=== PATIENT | female | born 1945 | race Caucasian/White ===

== ENCOUNTER 2017-10-08 18:40 | Inpatient (IN) ==
--- OUTSIDE RECORDS SUMMARY | 2017-10-08 19:03 | External Medical Summary | Continuity of Care Document ---
:1945 Author Organization [facility] Care Team Providers Name Role Phone YADIRA MORA A Admitting Physician YADIRA MORA Attending Physician Hospital Admission Diagnosis No data in the System Social History Element Code Description Smoking Start Date End Date Description Status Code System Smoking Status [id number] Never smoker SNOMED-CT Problems No data in the system Medications SNOMED CT Description 475734499 Drug Treatment Unknown Allergies No Allergy Data in the System Results Laboratory Results Order: CreatinineLegend: D=Delta, H=High, L =Low, HH=Critical High, LL=Critical Low, AA=Critical Alpha-Numeric, C=Corrected , A=Abnormal LOINC Test Result Flag Range Units Date 2160-0 1.1 0.6-1.3 mg/dl 01/11/2016 1Creat 08:20 SerPl-mCnc 50 L 60-116 GFRunits 01/11/2016 1GFR 08:20 [facility]forming [facility]notes:[id number] [address] [place] [address] - D[facility] M [facility] Radiology Results Order: CTABDWW CT Abdomen WWO/ContrastExam Completion Date:01/11/2016 09:00INDICATION: R10.11-RUQ pain; Abnormal US done CT Abdomen WWO/Contrast: Axial CT images of the abdomen were obtained before,during, and after the bolus injection of IV contrast. Contrast:95 cc Optiray 320Comparison: Gallbladder ultrasound 01/04/2016.Findings: The pelvis is incompletely included on the exam. There is however abulky soft tissue mass involving the distal sigmoid colon. This is veryworrisome for a primary carcinoma of the colon. There are multiplelow-attenuation solid liver masses. These include a 6.2 x 5.4 cm mass in theright lobe of the liver posteriorly. These are very worrisome for metastases.There is an indeterminate hypodensity in the upper pole of the spleen. Thisagain may also be due to a metastasis. There are also multiple subtle areas ofdecreased attenuation within the right renal parenchyma. These areradiographically indeterminate and could be due either to metastatic diseaseor to an inflammatory process. Please correlate clinically.Cholelithiasis. The gallbladder is otherwise negative. The pancreas and leftkidney are unremarkable. No bowel dilatation is seen. There is no ascites.Incidentally noted is a tiny calcified nodule in the right lung base. Thisagain is worrisome for a metastasis.Released By DELVIN DEL RIO, MDDate: 2015 12:26 Vital Signs No data in the system Plan of Care No data in the system Procedures No data in the system Encounters No data in the system Immunizations No data in the system Functional Status No data in the system Hospital Discharge Instructions No data in the system
--- OUTSIDE RECORDS SUMMARY | 2017-10-08 19:03 | External Medical Summary | Continuity of Care Document ---
:1945 Author Organization [facility] Care Team Providers Name Role Phone HOUSTON LEVIN II Admitting Physician HOUSTON LEVIN II Attending Physician ALEXANDER MORA Primary Care Physician Hospital Admission Diagnosis No data in the System Social History Element Code Description Smoking Start Date End Date Description Status Code System Smoking Status [id number] Never smoker SNOMED-CT Problems Code Code System Problem Name Start Date End Date Status 138866717 SNOMED-CT Gallstone Unknown Active 17471060 SNOMED-CT Diabetes Unknown Active mellitus Medications RxNorm Medication Dose Route Instructions Indications Start End Status Date Date Ascorbate 500 Oral orally 2 Active Calcium milligram times per day 308740 Ascorbic Acid 500 Oral orally 2 Active 500 MG Oral milligram times per day Tablet 19740512 Ciprofloxacin 500 MG ORAL ORAL TWO 01/14/ Active 250 MG Oral TIMES DAILY 2016 Tablet 6404 Linseed Oil 1000 Oral orally 2 Active milligram times per day 785410 Lisinopril 5 MG 5 milligram Oral orally every HTN Active Oral Tablet day 72979 Lutein 20 Oral orally once Eyes Active milligram (administer with a meal or snack) 109197 Metformin 500 Oral orally 2 Diabetes Active hydrochloride milligram times per day 500 MG Oral Tablet 044262 Metoclopramide 10 MG ORAL ORAL EVERY 6 01/14/ Active 10 MG Oral HRS NEEDED 2016 Tablet as needed. 171171 Ondansetron 4 MG 4 MG ORAL ORAL EVERY 01/14/ Active Disintegrating FOUR HOURS 2016 Oral Tablet NEEDED as needed. Allergies Code Code Allergy Type Reaction Severity Start End Status System Substance Date Date 7051 RXNorm Morphine Drug Needs oxygen Unknown 01/12/20 Active allergy 16 814274 RXNorm Percocet Drug N/V and Unknown 01/12/20 Active allergy dizziness 16 36529 RXNorm Percocet Drug N/V and Unknown 01/12/20 Active allergy dizziness 16 Results Laboratory Results Order: CBC With Automated DifferentialLegend: D=Delta, H=High, L=Low, HH=Critical High, LL=Critical Low, AA=Critical Alpha-Numeric, C=Corrected, A=Abnormal LOINC Test Result Flag Range Units Date 6690-2 10.2 4.5-11.0 10^3/mm3 01/16/2016 1WBC # Bld 04:50 Auto 76814-4 3.75 L 4.00-5.20 10^6/mm3 01/16/2016 1Retics # 04:50 Auto 50809-2 9.8 L 12.0-16.0 g/dl 01/16/2016 1Hgb 04:50 BldV-mCnc 4544-3 30.5 L 36.0-46.0 % 01/16/2016 1Hct VFr Bld 04:50 Auto 787-2 81.3 L 82.0-100.0 10^6/mm3 01/16/2016 1MCV RBC Auto 04:50 785-6 26.1 L 27.0-34.0 pg 01/16/2016 1MCH RBC Qn 04:50 Auto 786-4 32.1 32.0-36.0 g/dl 01/16/2016 1MCHC RBC 04:50 Auto-mCnc 788-0 15.4 H 11.7-15.0 % 01/16/2016 1RDW RBC 04:50 Auto-Rto 777-3 240 150-450 10^3/mm3 01/16/2016 1Platelet # 04:50 Bld Auto 09919-5 9.6 7.4-10.4 01/16/2016 1PMV Bld 04:50 35845-9 72.9 40.0-74.0 % 01/16/2016 1Neutrophils 04:50 # CSF 14.8 14.0-46.0 % 01/16/2016 1LYMPH% 04:50 43591-2 10.6 4.0-13.0 % 01/16/2016 1CD43 Ag Tiss 04:50 Ql ImStn 711-2 1.5 0.0-4.0 % 01/16/2016 1Eosinophil # 04:50 Bld Auto 704-7 0.2 <=3.0 % 01/16/2016 1Basophils # 04:50 Bld Auto 751-8 7.4 1.8-7.8 01/16/2016 1Neutrophils 04:50 # Bld Auto 90406-1 1.5 0.7-4.5 01/16/2016 1Lymphocytes 04:50 # Bld 08499-6 1.1 H 0.1-1.0 01/16/2016 1CD43 Ag Tiss 04:50 Ql ImStn 711-2 0.15 <=4.00 01/16/2016 1Eosinophil # 04:50 Bld Auto 704-7 0.02 <=0.20 01/16/2016 1Basophils # 04:50 Bld Auto N 01/16/2016 1MANDIFF 04:50 83960-5 N 01/16/2016 1RBC Bld Auto 04:50 Performing Lab Footnotes:[address] [place] [address] - [id number] - [address] [place] [address] Order: Comprehensive Metabolic PanelLegend: D=Delta, H=High, L=Low, HH= Critical High, LL=Critical Low, AA=Critical Alpha-Numeric, C=Corrected, A= Abnormal LOINC Test Result Flag Range Units Date 2345-7 132 H 70-105 mg/dl 01/16/2016 1Glucose 04:50 SerPl-mCnc 3094-0 8 7-25 mg/dl 01/16/2016 1BUN 04:50 SerPl-mCnc 2160-0 0.6 0.6-1.3 mg/dl 01/16/2016 1Creat 04:50 SerPl-mCnc 65122-2 13 13-39 01/16/2016 1Creat/Urea 04:50 nit SerPl 2951-2 140 135-145 mmol/L 01/16/2016 1Sodium 04:50 SerPl-sCnc 86074-3 3.6 3.5-5.1 mmol/L 01/16/2016 1Potassium 04:50 SerPl-mCnc 2075-0 103 98-107 mmol/l 01/16/2016 1Chloride 04:50 SerPl-sCnc 2028-9 31 21-31 mmol/l 01/16/2016 1CO2 04:50 SerPl-sCnc 21343-6 10 9-16 mmol/L 01/16/2016 1Anion Gap 04:50 SerPl-sCnc 2692-2 290 277-298 mOsm/kg 01/16/2016 1Osmolality 04:50 SerPl 88701-2 8.4 8.2-10.0 mg/dl 01/16/2016 1Calcium 04:50 SerPl-mCnc 1742-6 23 7-52 IU/L 01/16/2016 1ALT 04:50 SerPl-cCnc 1920-8 47 H 13-39 IU/L 01/16/2016 1AST 04:50 SerPl-cCnc 1715-2 183 H 34-104 U/L 01/16/2016 1ACP 04:50 SerPl-cCnc 1975-2 0.4 0.3-1.0 mg/dl 01/16/2016 1Bilirub 04:50 SerPl-mCnc 2885-2 5.6 L 6.0-8.3 g/dL 01/16/2016 1Prot 04:50 SerPl-mCnc 1751-7 2.5 L 3.5-5.7 g/dl 01/16/2016 1Albumin 04:50 SerPl-mCnc 2336-6 3.1 2.3-3.2 g/dL 01/16/2016 1Globulin 04:50 Ser-mCnc 1759-0 0.8 L 1.2-2.0 01/16/2016 1Albumin/Melba 04:50 b SerPl 99 60-116 GFRunits 01/16/2016 1GFR 04:50 Performing Lab Footnotes:[facility] [id number] [facility] [address] [place] Order: PotassiumLegend: D=Delta, H=High, L=Low, HH=Critical High, LL=Critical Low, AA=Critical Alpha-Numeric, C=Corrected, A=Abnormal LOINC Test Result Flag Range Units Date 02829-3 3.1 L 3.5-5.1 mmol/L 01/13/2016 1Potassium 10:40 [facility] Performing Lab Footnotes:[address] [place] [address] - [id number] - [address] [place] [address], [place] [address] - [facility] Order: Urinalysis With Microscopic ExamLegend: D=Delta, H=High, L=Low, HH= Critical High, LL=Critical Low, AA=Critical Alpha-Numeric, C=Corrected, A= Abnormal LOINC Test Result Flag Range Units Date 5778-6 Color Ur Yellow 6 14:30 17930-2 Clarity Hazy Ur 6 14:30 2966-0 Sp Gr 1.020 1.005-1.030 24h Ur 6 14:30 2756-5 pH Ur 5.5 5.0-7.0 6 14:30 58885-7 Small * NEGATIVE Leukocyte esterase 6 14:30 Ur-aCnc 91647-7 Nitrite Positive * NEGATIVE Ur Ql Strip.auto 6 14:30 81905-2 Prot 30 mg/dL * NEGATIVE Tiss-mCnt 6 14:30 2349-9 Glucose Negative NEGATIVE Ur Ql 6 14:30 41469-3 MEK 5 mg/dL * NEGATIVE Ur-mCnc 6 14:30 1977-8 Bilirub Negative NEGATIVE Ur Ql 6 14:30 933-2 Bld Prod Trace-lysed * NEGATIVE Typ BPU 6 14:30 88964-0 2.0 H <=1.0 Urobilinogen Ur Ql 6 14:30 1WBC_UM 10-20 * 0-5 /HPF 6 14:30 5808-1 1RBC # 0-2 * 0-5 /HPF UrnS HPF 6 14:30 5787-7 1Epi 5-10 * 0-2 /HPF Cells #/area UrnS 6 14:30 HPF 96557-9 Many /HPF 1Bacteria UrnS Ql 6 14:30 Micro 04038-7 1Mucous Small Amount * NONE PRESENT /HPF Threads #/area 6 14:30 UrnS HPF 11710-7 1C trach Y UrnS Ql Cult 6 14:30 Performing Lab Footnotes:[facility] [id number] - [address] [place] [address] - [facility] Order: CEA Carcinoembryonic AntigenLegend: D=Delta, H=High, L=Low, HH=Critical High, LL=Critical Low, AA=Critical Alpha-Numeric, C=Corrected, A=Abnormal LOINC Test Result Flag Range Units Date 2038-10 45.29 H 0.00-3.00 ng/mL 01/12/2016 1CEA 13:20 SerPl-mCnc 1Reference Non-Smoker 0-3 ng/mlSmoker 0-5 ng/mlPast smoker 0-5.4 ng/mlAs of 11/27/2011 new methodology has been implemented, this methodology shows a -19.97% bais. Reference range cutoffs will remain the same. Performing Lab Footnotes:[address] [place] [address] [id number] [place] Order: LactateLegend: D=Delta, H=High, L=Low, HH=Critical High, LL=Critical Low , AA=Critical Alpha-Numeric, C=Corrected, A=Abnormal LOINC Test Result Flag Range Units Date 14668-0 1.9 0.5-2.2 mmol/L 01/12/2016 1Lactate 13:20 SerPl-[facility] Performing Lab Footnotes:[facility] [id number] [address] M [place] Order: LipaseLegend: D=Delta, H=High, L=Low, HH=Critical High, LL=Critical Low , AA=Critical Alpha-Numeric, C=Corrected, A=Abnormal LOINC Test Result Flag Range Units Date 3040-3 20 11-82 U/L 01/12/2016 1Lipase 13:20 SerPl-[facility] Performing Lab Footnotes:[address] [place] [address] [id number] M E[place]IS[place] Microbiology Results w SusceptibilitiesOrder: Culture UrineIsolate #1:1Escherichia coli (>100,000 cfu/ml)Susceptibility: LOINC Code Drug Interpretation Result Date 1Ampicillin Susceptible <=2 01/12/2016 14:30 32-3 1Ampicillin/Sul Susceptible <=2 01/12/2016 bactam 14:30 76-0 1Cefazolin Susceptible <=01/12/2016 14:30 26367-1 1Cefepime Susceptible <=01/12/2016 14:30 80100-2 1Ceftriaxone Susceptible <=01/12/2016 14:30 185-9 1Ciprofloxacin Susceptible <=0.25 01/12/2016 14:30 267-5 1Gentamicin Susceptible <=1 01/12/2016 14:30 43244-0 1Levofloxacin Susceptible <=0.12 01/12/2016 14:30 1Nitrofurantoin Susceptible <=16 01/12/2016 (ftn) 14:30 412-7 1Piperacillin/t Susceptible <=01/12/2016 azobactam 14:30 508-2 1Tobramycin Susceptible <=01/12/2016 14:30 516-5 1Trimethoprim/S Susceptible <=20 01/12/2016 ulfamethoxazole 14:30 Performing Lab Footnotes:[facility] [id number] - [address] [place] [address] - [place] Keri LANDIS Vital Signs Vitals Value Date Body Temperature 98.2 F 01/16/2016 Respiratory Rate 21 01/16/2016 O2% BldC Oximetry 97 01/16/2016 BP Systolic 128 mmHg 01/16/2016 BP Diastolic 65 mmHg 01/16/2016 Height 66 in 01/12/2016 Weight Measured 179.89 lbs 01/12/2016 BSA (Body Surface Area) 1.12354 01/12/2016 BMI (Body Mass Index) 29.2 01/12/2016 Plan of Care No data in the system Procedures Code Code System Procedure Name Target Site Date of Procedure 57343978 SNOMED Appendectomy 01/11/2014 857993528 SNOMED Total knee 10/15/2006 replacement 242015436 SNOMED Total knee 08/11/2006 replacement Encounters No data in the system Immunizations Vaccine Code Code System Vaccine Name Date Status 109 CVX 02/09/2015 Completed pneumococcal vaccine, NOS 88 CVX influenza Completed virus vaccine, NOS Functional Status No data in the system Hospital Discharge Instructions MedicalPrescriptions Called To:Take CIPRO 500MG 1 TAB BY MOUTH TWICE A DAY MORNING AND EVENING. TAKE ZOFRAN 4MG ODT 1 TABLET BY MOUTH EVERY 4 HOURS NEEDED.TAKE REGLAN 10MG 1 TABLET BY MOUTH EVERY 6 HOURS NEEDED.[facility] pharmacyNotify Your Physician with Any Questions or ProblemsCall your Physician or report to the Emergency Room if your condition(s) worsen after dischargeActivityResume usual activities unless otherwise indicatedFollow Up AppointmentDrMaritza Levin will schedule appointment with Dr. Guzman this week and will notify you.Additional Education Provided:MedicationsNotify Your Physician with Any Questions or ProblemsIf you have any further questions, contact your physician or clinicActivityAlternate activity periods with rest periods; breakup large activites into smaller tasksNotify Your Physician with Any Questions or ProblemsPlease bring a copy of this instruction sheet with you to your physician on your follow up visitHome Meds SentN/ADietDiabetic ADA reduced calorie
--- OUTSIDE RECORDS SUMMARY | 2017-10-08 19:03 | External Medical Summary | Continuity of Care Document ---
:1945 Author Organization [facility] Allergies Active Description Code Type Severity Reaction Onset Reported/ Identified Relationship Clinical to Patient Status Yes Morphine ##NOM Drug N/A N/A Sulfate EN##, AL1,c eStru ct,al lergy ,1237 ,8981 394 Yes percocet Drug N/A dizzy Yes Morphine 1545 Unknown N/A 01/12/2016 Yes Morphine 1545 Unknown Needs 01/12/2016 oxygen Yes No Known 75448 Unknown N/A 01/12/2016 Drug 0 Allergies Yes Percocet 6992 Unknown N/A 01/12/2016 Yes Percocet 6992 Unknown N/V and 01/12/2016 dizziness Yes morphine 326 Drug moderate O2 drops 05/22/2017 out Yes Percocet 6992 Drug moderate Nausea~Di 05/22/2017 zziness Medications Medication Packaging Start Date Stop Date Route Dosage Sig Soln 08/21/2016 08/21/2016 <RXR.1.2 10 sodium chloride >IV Once 0.9% Inj Ghada Flush</R 10 mL [CLAR] XR.1.2>& lt;RXR.1.2& gt;IV Flush</R XR.1.2> Soln 08/21/2016 08/21/2016 <RXR.1.2 500 heparin flush >IV Once 100 units/mL Ghada Flush</R 5mL XR.1.2>& syringe[CLAR] lt;RXR.1.2& gt;IV Flush</R XR.1.2> Soln 08/21/2016 08/21/2016 <RXR.1.2 10 sodium chloride >N/A< Once 0.9% Inj Ghada /RXR.1.2&gt 10 mL [CLAR] ;<RXR.1. 2>N/A&lt ;/RXR.1.2&g t; Soln 08/21/2016 08/21/2016 <RXR.1.2 500 heparin flush >N/A< Once 100 units/mL Ghada /RXR.1.2&gt 5mL ;<RXR.1. syringe[CLAR] 2>N/A&lt ;/RXR.1.2&g t; Problems Date Dx Attending Type Code Diagnosis Diagnosed By Coded 01/16/2016 YADIRA MORA I10 ESSENTIAL (PRIMARY) HYPERTENSION 01/16/2016 YADIRA MORA R10.11 RIGHT UPPER QUADRANT PAIN 01/16/2016 YADIRA MORA R10.13 EPIGASTRIC PAIN 01/16/2016 YADIRA MORA R16.0 HEPATOMEGALY, NOT ELSEWHERE CLASSIFIED 01/16/2016 YADIRA MORA Z01.810 ENCOUNTER FOR PREPROCEDURAL CARDIOVASCULAR EXAMINATION 02/23/2016 HOUSTON LEVIN B96.20 UNSPECIFIED ESCHERICHIA COLI [E. COLI] THE CAUSE OF DISEASES CLASSIFIED ELSEWHERE 02/23/2016 HOUSTON LEVIN E11.9 TYPE 2 DIABETES MELLITUS WITHOUT COMPLICATIONS 02/23/2016 HOUSTON LEVIN K44.9 DIAPHRAGMATIC HERNIA WITHOUT OBSTRUCTION OR GANGRENE 02/23/2016 HOUSTON LEVIN K62.89 OTHER SPECIFIED DISEASES OF ANUS AND RECTUM 02/23/2016 HOUSTON LEVIN R10.11 RIGHT UPPER QUADRANT PAIN 02/23/2016 HOUSTON LEVIN R10.84 GENERALIZED ABDOMINAL PAIN 02/23/2016 HOUSTON LEVIN R11.2 NAUSEA WITH VOMITING, UNSPECIFIED 02/23/2016 HOUSTON LEVIN R16.0 HEPATOMEGALY, NOT ELSEWHERE CLASSIFIED 02/23/2016 HOUSTON LEVIN R82.99 OTHER ABNORMAL FINDINGS IN URINE 12/31/2016 MOY YEE 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 UNSPECIFIED 12/31/2016 MOY YEE K80.20 CALCULUS OF D. GALLBLADDER WITHOUT CHOLECYSTITIS WITHOUT OBSTRUCTION 12/31/2016 MOY YEE R16.1 SPLENOMEGALY, NOT D. ELSEWHERE CLASSIFIED 12/31/2016 MOY YEE R19.09 OTHER D. INTRA-ABDOMINAL AND PELVIC SWELLING, MASS AND LUMP 12/31/2016 MOY YEE R91.1 SOLITARY PULMONARY D. NODULE 05/26/2017 Yamile Shane N13.8 Other Obstructive And Reflux Uropathy 08/19/2017 Yamile Shane N13.39 Other Hydronephrosis Procedures Code Description Performed By Performed On EXCISION OF STIJAIMIE, HOUSTON 01/13/2016 1ZWK1PV RECTUM, VIA NATURAL OR ARTIFICIAL OPENING ENDOSCOPIC, DIAGNOSTIC INSPECTION POONAM, HOUSTON 01/13/2016 2TH75SG OF UPPER INTESTINAL TRACT, VIA NATURAL OR ARTIFICIAL OPENING ENDOSCOPIC Results Test Result Range Vitamin D, 25-Hydroxy - 08/12/17 08:05 Vitamin D, 25-Hydroxy 34.0 ng/mL 30.0-100.0 PTH, Intact - 08/12/17 08:05 PTH, Intact 143 pg/mL 15-65 Procalcitonin - 01/08/17 13:00 Procalcitonin 0.24 ng/mL 0.00-0.08 UGT1A1 Irinotecan Toxicity - 01/15/17 14:25 Result: Comment Additional Information: Comment Director Review: Comment LINDA and PE, Serum - 03/24/17 14:06 Protein, Total, Serum 6.3 g/dL 6.0-8.5 Immunoglobulin G, Qn, Serum 957 mg/dL 700-1600 Immunoglobulin A, Qn, Serum 154 mg/dL 64-422 Immunoglobulin M, Qn, Serum 122 mg/dL 26-217 Albumin 3.4 g/dL 2.9-4.4 Rrkly-2-Nygtsbfm 0.3 g/dL 0.0-0.4 Vsdck-7-Wuafqxxh 0.6 g/dL 0.4-1.0 Beta Globulin 0.9 g/dL 0.7-1.3 Gamma Globulin 1.1 g/dL 0.4-1.8 M-Chepe Not Observed g/dL Not Observed Globulin, Total 2.9 g/dL 2.2-3.9 A/G Ratio 1.2 0.7-1.7 Immunofixation Result, Serum Comment Please note: Comment Free K+L Lt Chains,Qn,S - 03/24/17 14:06 Free Magalia Lt Chains,S 29.8 mg/L 3.3-19.4 Free Lambda Lt Chains,S 21.3 mg/L 5.7-26.3 Magalia/Lambda Ratio,S 1.40 0.26-1.65 UA/M w/rflx Culture, Routine - 08/18/17 13:00 Specific Dorothy 1.019 1.001-1.035 pH 6.0 5.0-9.0 Urine-Color YELLOW Appearance Comment WBC Esterase LARGE NEGATIVE Protein 100 mg/dL <20 Glucose Comment mg/dL NEGATIVE Ketones Comment mg/dL NEGATIVE Occult Blood See below: NEGATIVE Bilirubin Comment NEGATIVE Urobilinogen,Semi-Qn Comment mg/dL 0.2-1.0 Nitrite, Urine Comment NEGATIVE Microscopic Examination YES Microscopic Examination - 08/18/17 13:00 WBC >100 /hpf 0-3 RBC >100 /hpf 0-3 Epithelial Cells (non renal) 0-3 /hpf 0-3 Bacteria Comment /hpf NEGATIVE Comment Comment Cast Type 8-12 /lpf 0-3 Urine Culture, Routine - 08/18/17 13:00 Urine Culture, Routine Note Protein Total, Qn, 24-Hr Urine - 09/12/17 11:07 Protein,Total,Urine 51.4 mg/dL Not Estab. Prot,24hr calculated 1054 mg/24 hr 30-150 Encounters ACCT No. Visit Discharge Status Pt. Type Provider Facility Loc./Unit Complaint Date/Time [id number] 04/03/2015 04/03/2015 CLS Outpatie Blossom, 11:55:01 23:59:59 nt Christofer Castellanos [id number] 02/17/2014 02/17/2014 CLS Outpatie Knackstedt 11:03:10 23:59:59 Archie christianson [id number] 02/17/2014 02/17/2014 CLS Outpatie Dasha, 09:13:31 23:59:59 nt Qiana Johnston [id number] 02/11/2014 02/11/2014 CLS Outpatie Knackstedt 18:13:29 23:59:59 Archie christianson [id number] 01/21/2014 01/21/2014 CLS Outpatie Santiago, 15:19:42 23:59:59 meghan Castellanos 13941 01/20/2014 01/20/2014 CLS Outpatie Alpers, 13:50:09 23:59:59 nt Qiana [place] [id number] 01/20/2014 01/20/2014 CLS Outpatie Sonamstedt 11:55:32 23:59:59 nt Archie 43738 01/13/2014 01/13/2014 CLS Outpatie Santiago, 16:49:43 23:59:59 nt Fly Castellanos [id number] 01/19/2016 01/22/2016 DIS Outpatie FESEN, [place], 213 07:36:00 07:38:04 nt MILADIS R PROBABLY COLON CA [id number] 05/20/2016 ACT Document 21:08:05 Registra tion [id number] 08/13/2017 Document 1308 13:08:00 Registra tion [id number] 08/13/2016 Document 1807 18:07:00 Registra tion [id number] 08/21/2017 Document 1016 10:16:00 Registra tion [id number] 08/19/2017 Document 0535 05:35:00 Registra tion [id number] 03/26/2017 Document 1106 11:06:00 Registra tion [id number] 08/18/2017 08/18/2017 DIS Outpatie Shane, [place] OUTPT Cysto- uretero 12:00:00 23:59:00 nt Yamile Surgical scopy with Hospital left stent change [id number] 05/23/2017 05/23/2017 DIS Outpatie Shane, [place] OUTPT Cysto- uretere 10:16:00 23:59:00 nt Yamile Surgical oscopy with Hospital left stent placement [id number] 12/22/2017 PEN Outpatie [place] OUTPT CYSTO-URETERO 10:00:00 nt Surgical SCOPY WITH Hospital LEFT STENT CHANGE [id number] 01/10/2017 Document 1408 14:08:00 Registra tion [id number] 07/28/2017 ACT Unknown SHANE, 09:14:00 YAMILE [id number] 04/28/2017 ACT Unknown SHANE, 09:27:00 YAMILE [id number] 12/25/2016 ACT Unknown NANNEY, 15:05:00 MOY Vasquez [id number] 05/20/2016 ACT Unknown LOPEZ, specimen 10:57:00 MOY Vasquez [id number] 01/12/2016 ACT Inpatien POONAM, [place] [facility]EVER 11:55:00 t [facility] [id number] 01/11/2016 ACT Unknown ABBY, 08:09:00 YADIRA Johnston [id number] 01/04/2016 ACT Unknown ABBY, 07:32:00 YADIRA Johnston [id number] 08/15/2017 08/15/2017 CLS Outayad Molly [facility] - 11:06:32 23:59:59 nt [facility] [id number] 06/24/2017 06/24/2017 DIS Outpatie Molly Cerrato [facility] - 14:23:01 23:59:59 nt [facility] [id number] 01/08/2017 01/08/2017 DIS Outpatie [place] Molly [facility] - [place] 11:53:10 23:59:59 nt [facility] [id number] 08/21/2016 08/21/2016 DIS Outpatie Molly Yee ED OP REMOVE 17:17:26 17:33:00 nt Moy Jasmin [facility] [id number] 04/02/2016 04/02/2016 CLS Outpatie Molly Cerrato Lab LAB 11:31:04 23:59:59 nt [facility] [id number] 04/02/2016 04/02/2016 CLS Outpatijanay Molly Cerrato [facility] - 10:21:04 23:59:59 nt [facility] [id number] 03/19/2016 03/19/2016 CLS Outpatijanay Molly [facility] - 13:47:26 23:59:59 nt [facility] [id number] 01/13/2016 01/13/2016 DIS Outpatie Molly Levin [facility] - 00:00:00 23:59:59 nt [facility] [id number] 04/02/2016 Document 10:28:23 Registra tion [id number] 09/13/2017 Document 1006 10:06:00 Registra tion [id number] 08/19/2017 ACT Document 18:20:43 Registra tion [id number] 01/24/2017 Document 1706 17:06:00 Registra tion
--- OUTSIDE RECORDS SUMMARY | 2017-10-08 19:03 | External Medical Summary | Continuity of Care Document ---
:1945 Author Organization [facility] Care Team Providers Name Role Phone YADIRA MORA Admitting Physician YADIRA MORA Attending Physician Hospital Admission Diagnosis No data in the System Social History Element Code Description Smoking Start Date End Date Description Status Code System Smoking Status [id number] Never smoker SNOMED-CT Problems No data in the system Medications SNOMED CT Description 063488181 Drug Treatment Unknown Allergies No Allergy Data in the System Results Radiology Results Order: USABDLM US Abdominal, limited (single organ, quadrant, f/u)Exam Completion Date:01/04/2016 08:00INDICATION: RUQ painUS Abdominal, limited (single organ, teddy:INDICATION:RUQ painUS Abdominal, limited (single organ, teddy The liver is normal in size. Multipleechogenic heterogeneous masses are noted within the liver. Given themultiplicity a three phase CT examination is recommended. The findings aresuspicious for hepatic metastatic disease. There is also cholelithiasis. Nogallbladder wall thickening or pericholecystic fluid is seen. . There is nobiliary ductal dilatation. The common duct measures 6 mm.The right kidney measures 12.3 x 4.7 x 5.6 cm. Renal cortical echogenicityand thickness is within normal limits. There is no hydronephrosis, mass ordefinite renal calculi.There is limited visualization of the pancreas which is unremarkable. No freefluid is documented. The abdominal aorta is normal in caliber throughout itsvisualized course.IMPRESSION: Multiple liver masses. A three-phase CT abdomen and pelvis isrecommended. Cholelithiasis.Released By STAR NETTLES, MDDate: 01/04/2016 09:31 Vital Signs No data in the system Plan of Care No data in the system Procedures No data in the system Encounters No data in the system Immunizations No data in the system Functional Status No data in the system Hospital Discharge Instructions No data in the system
--- OUTSIDE RECORDS SUMMARY | 2017-10-08 19:03 | External Medical Summary | Continuity of Care Document ---
:1945 Author Organization [facility] Care Team Providers Name Role Phone YADIRA MORA Admitting Physician YADIRA MORA Attending Physician Hospital Admission Diagnosis Code Admission Diagnosis Date ENCOUNTER FOR PREPROCEDURAL CARDIOVASCULAR EXAMINATION Social History Element Code Description Smoking Start Date End Date Description Status Code System Smoking Status [id number] Never smoker SNOMED-CT Problems Code Code System Problem Name Start Date End Date Status 260255593 SNOMED-CT Gallstone Unknown Active 02862943 SNOMED-CT Diabetes Unknown Active mellitus Medications RxNorm Medication Dose Route Instructions Indications Start End Status Date Date Ascorbate 500 Oral orally 2 Active Calcium milligram times per day 040958 Ascorbic Acid 500 Oral orally 2 Active 500 MG Oral milligram times per day Tablet 280472 Ciprofloxacin 500 MG ORAL ORAL TWO 01/14/ Active 250 MG Oral TIMES DAILY 2016 Tablet 6404 Linseed Oil 1000 Oral orally 2 Active milligram times per day 541386 Lisinopril 5 MG 5 milligram Oral orally every HTN Active Oral Tablet day 17568 Lutein 20 Oral orally once Eyes Active milligram (administer with a meal or snack) 109654 Metformin 500 Oral orally 2 Diabetes Active hydrochloride milligram times per day 500 MG Oral Tablet 581297 Metoclopramide 10 MG ORAL ORAL EVERY 6 01/14/ Active 10 MG Oral HRS NEEDED 2016 Tablet as needed. 099447 Ondansetron 4 MG 4 MG ORAL ORAL EVERY 01/14/ Active Disintegrating FOUR HOURS 2016 Oral Tablet NEEDED as needed. Allergies Code Code Allergy Type Reaction Severity Start End Status System Substance Date Date 7051 RXNorm Morphine Drug Needs oxygen Unknown 01/12/20 Active allergy 16 106598 RXNorm Percocet Drug N/V and Unknown 01/12/20 Active allergy dizziness 16 07580 RXNorm Percocet Drug N/V and Unknown 01/12/20 Active allergy dizziness 16 Results Radiology Results Order: USABDLM US Abdominal, [...] Procedures No data in the system Encounters Date Code Diagnosis Status (ICD10) - V44203 ENCOUNTER PREPROCEDURAL CV EXAM Active Immunizations Vaccine Code Code System Vaccine Name Date Status 109 CVX 02/09/2015 Completed pneumococcal vaccine, NOS 88 CVX influenza Completed virus vaccine, NOS Functional Status No data in the system Hospital Discharge Instructions No data in the system
--- OUTSIDE RECORDS SUMMARY | 2017-10-08 19:03 | External Medical Summary | Continuity of Care Document ---
:1945 Author Organization [facility] Care Team Providers Name Role Phone HOUSTON LEVIN II Admitting Physician HOUSTON LEVIN II Attending Physician ALEXANDER MORA Primary Care Physician Hospital Admission Diagnosis Code Admission Diagnosis Date [id number] Right upper quadrant pain Social History Element Code Description Smoking Start Date End Date Description Status Code System Smoking Status [id number] Never smoker SNOMED-CT Problems Code Code System Problem Name Start Date End Date Status 392149755 SNOMED-CT Gallstone Unknown Active 28190385 SNOMED-CT Diabetes Unknown Active mellitus Medications RxNorm Medication Dose Route Instructions Indications Start End Status Date Date Ascorbate 500 Oral orally 2 Active Calcium milligram times per day 115 Ascorbic Acid 500 Oral orally 2 Active milligram times per day 398968 Ciprofloxacin 500 MG ORAL ORAL TWO 01/14/ Active 250 MG Oral TIMES DAILY 2016 Tablet 6404 Linseed Oil 1000 Oral orally 2 Active milligram times per day 91543 Lisinopril 5 milligram Oral orally every HTN Active day 65739 Lutein 20 Oral orally once Eyes Active milligram (administer with a meal or snack) 6809 Metformin 500 Oral orally 2 Diabetes Active milligram times per day 823361 Metoclopramide 10 MG ORAL ORAL EVERY 6 01/14/ Active 10 MG Oral HRS NEEDED 2016 Tablet as needed. 146852 Ondansetron 4 MG 4 MG ORAL ORAL EVERY 01/14/ Active Disintegrating FOUR HOURS 2016 Oral Tablet NEEDED as needed. Allergies Code Code Allergy Type Reaction Severity Start End Status System Substance Date Date 7051 RXNorm Morphine Drug Needs oxygen Unknown 01/12/20 Active allergy 16 331990 RXNorm Percocet Drug N/V and Unknown 01/12/20 Active allergy dizziness 16 47766 RXNorm Percocet Drug N/V and Unknown 01/12/20 Active allergy dizziness 16 Results Laboratory Results Order: CBC With Automated DifferentialLegend: D=Delta, H=High, L=Low, HH=Critical High, LL=Critical Low, AA=Critical Alpha-Numeric, C=Corrected, A=Abnormal LOINC Test Result Flag Range Units Date 6690-2 10.2 4.5-11.0 10^3/mm3 01/16/2016 1WBC # Bld 04:50 Auto 81278-2 3.75 L 4.00-5.20 10^6/mm3 01/16/2016 1Retics # 04:50 Auto 79676-0 9.8 L 12.0-16.0 g/dl 01/16/2016 1Hgb 04:50 [...] 10^3/mm3 01/16/2016 1Platelet # 04:50 Bld Auto 79298-5 9.6 7.4-10.4 01/16/2016 1PMV Bld 04:50 83947-1 72.9 40.0-74.0 % 01/16/2016 1Neutrophils 04:50 # CSF 14.8 14.0-46.0 % 01/16/2016 1LYMPH% 04:50 20650-0 10.6 4.0-13.0 % 01/16/2016 1CD43 Ag Tiss 04:50 Ql ImStn 711-2 1.5 0.0-4.0 % 01/16/2016 1Eosinophil # 04:50 Bld Auto 704-7 0.2 <=3.0 % 01/16/2016 1Basophils # 04:50 Bld Auto 751-8 7.4 1.8-7.8 01/16/2016 1Neutrophils 04:50 # Bld Auto 93145-9 1.5 0.7-4.5 01/16/2016 1Lymphocytes 04:50 # Bld 34126-3 1.1 H 0.1-1.0 01/16/2016 1CD43 Ag Tiss 04:50 Ql ImStn 711-2 0.15 <=4.00 01/16/2016 1Eosinophil # 04:50 Bld Auto 704-7 0.02 <=0.20 01/16/2016 1Basophils # 04:50 Bld Auto N 01/16/2016 1MANDIFF 04:50 79221-4 N 01/16/2016 1RBC Bld Auto 04:50 Performing Lab Footnotes:[address] [place] [address] - [id number] - [address] [place] [id number] [place] [address] Order: Comprehensive Metabolic PanelLegend: D=Delta, H=High, L=Low, HH= Critical High, LL=Critical Low, AA=Critical Alpha-Numeric, C=Corrected, A= Abnormal LOINC Test Result Flag Range Units Date 2345-7 132 H 70-105 mg/dl 01/16/2016 1Glucose 04:50 SerPl-mCnc 3094-0 8 7-25 mg/dl 01/16/2016 1BUN 04:50 SerPl-mCnc 2160-0 0.6 0.6-1.3 mg/dl 01/16/2016 1Creat 04:50 SerPl-mCnc 67219-4 13 13-39 01/16/2016 1Creat/Urea 04:50 nit SerPl 2951-2 140 135-145 mmol/L 01/16/2016 1Sodium 04:50 SerPl-sCnc 77312-0 3.6 3.5-5.1 mmol/L 01/16/2016 1Potassium 04:50 SerPl-mCnc 2075-0 103 98-107 mmol/l 01/16/2016 1Chloride 04:50 SerPl-sCnc 2028-9 31 21-31 mmol/l 01/16/2016 1CO2 04:50 SerPl-sCnc 97165-1 10 9-16 mmol/L 01/16/2016 1Anion Gap 04:50 SerPl-sCnc 2692-2 290 277-298 mOsm/kg 01/16/2016 1Osmolality 04:50 SerPl 95204-5 8.4 8.2-10.0 mg/dl 01/16/2016 1Calcium 04:50 SerPl-mCnc [...] 60-116 GFRunits 01/16/2016 1GFR 04:50 [facility] [id number] - [address] [place], [place] [address] [place] [address] [place] Order: PotassiumLegend: D=Delta, H=High, L=Low, HH=Critical High, LL=Critical Low, AA=Critical Alpha-Numeric, C=Corrected, A=Abnormal LOINC Test Result Flag Range Units Date 97225-3 3.1 L 3.5-5.1 mmol/L 01/13/2016 1Potassium 10:40 [facility] Performing Lab Footnotes:[address] [place] [address] - [id number] - [address] [place] [address], [place] [address] - [facility] Order: Urinalysis With Microscopic ExamLegend: D=Delta, H=High, L=Low, HH= Critical High, LL=Critical Low, AA=Critical Alpha-Numeric, C=Corrected, A= Abnormal LOINC Test Result Flag Range Units Date 5778-6 Color Ur Yellow 6 14:30 43393-4 Clarity Hazy Ur 6 14:30 2966-0 Sp Gr 1.020 1.005-1.030 24h Ur 6 14:30 2756-5 pH Ur 5.5 5.0-7.0 6 14:30 33811-3 Small * NEGATIVE Leukocyte esterase 6 14:30 Ur-aCnc 50077-2 Nitrite Positive * NEGATIVE Ur Ql Strip.auto 6 14:30 93680-3 Prot 30 mg/dL * NEGATIVE Tiss-mCnt 6 14:30 2349-9 Glucose Negative NEGATIVE Ur Ql 6 14:30 90866-8 MEK 5 mg/dL * NEGATIVE Ur-mCnc 6 14:30 1977-8 Bilirub Negative NEGATIVE Ur Ql 6 14:30 933-2 Bld Prod Trace-lysed * NEGATIVE Typ BPU 6 14:30 91858-7 2.0 H <=1.0 Urobilinogen Ur Ql 6 14:30 1WBC_UM 10-20 * 0-5 /HPF 6 14:30 5808-1 1RBC # 0-2 * 0-5 /HPF UrnS HPF 6 14:30 5787-7 1Epi 5-10 * 0-2 /HPF Cells #/area UrnS 6 14:30 HPF 47187-4 Many /HPF 1Bacteria UrnS Ql 6 14:30 Micro 59965-6 1Mucous Small Amount * NONE PRESENT /HPF Threads #/area 6 14:30 UrnS HPF 19105-1 1C trach Y UrnS Ql Cult 6 14:30 Performing Lab Footnotes:[facility] [id number] [facility] [address] [place] [address] - [place] Order: CEA Carcinoembryonic AntigenLegend: D=Delta, H=High, L=Low, HH=Critical High, LL=Critical Low, AA=Critical Alpha-Numeric, C=Corrected, A=Abnormal LOINC Test Result Flag Range Units Date 2038-10 45.29 H 0.00-3.00 ng/mL 01/12/2016 1CEA 13:20 SerPl-mCnc 1Reference Non-Smoker 0-3 ng/mlSmoker 0-5 ng/mlPast smoker 0-5.4 ng/mlAs of 11/27/2011 new methodology has been implemented, this methodology shows a -19.97% bais. Reference range cutoffs will remain the same. Performing Lab Footnotes:[facility] [id number] [address] [place] Order: LactateLegend: D=Delta, H=High, L=Low, HH=Critical High, LL=Critical Low , AA=Critical Alpha-Numeric, C=Corrected, A=Abnormal LOINC Test Result Flag Range Units Date 06523-4 1.9 0.5-2.2 mmol/L 01/12/2016 1Lactate 13:20 SerPl-[facility] Performing Lab Footnotes:[facility] - [id number] [address] [place] Order: LipaseLegend: D=Delta, H=High, L=Low, HH=Critical High, LL=Critical Low , AA=Critical Alpha-Numeric, C=Corrected, A=Abnormal LOINC Test Result Flag Range Units Date 3040-3 20 11-82 U/L 01/12/2016 1Lipase 13:20 SerPl-[id number] [address] [place] Microbiology Results w SusceptibilitiesOrder: Culture UrineIsolate #1:1Escherichia coli (>100,000 cfu/ml)Susceptibility: LOINC Code Drug Interpretation Result Date 1Ampicillin Susceptible <=2 01/12/2016 14:30 32-3 1Ampicillin/Sul Susceptible <=2 01/12/2016 bactam 14:30 76-0 1Cefazolin Susceptible <=01/12/2016 14:30 52938-7 1Cefepime Susceptible <=01/12/2016 14:30 88402-9 1Ceftriaxone Susceptible <=01/12/2016 14:30 185-9 1Ciprofloxacin Susceptible <=0.25 01/12/2016 14:30 267-5 1Gentamicin Susceptible <=01/12/2016 14:30 54411-8 1Levofloxacin Susceptible <=0.12 01/12/2016 14:30 1Nitrofurantoin Susceptible <=16 01/12/2016 (ftn) 14:30 412-7 1Piperacillin/t Susceptible <=01/12/2016 azobactam 14:30 508-2 1Tobramycin Susceptible <=01/12/2016 14:30 516-5 1Trimethoprim/S Susceptible <=20 01/12/2016 ulfamethoxazole 14:30 Performing Lab Footnotes:[facility] [id number] - [address] [place] [address] - [facility] Vital Signs Vitals Value Date Body Temperature 98.2 F 01/16/2016 Respiratory Rate 21 01/16/2016 O2% BldC Oximetry 97 01/16/2016 BP Systolic 128 mmHg 01/16/2016 BP Diastolic 65 mmHg 01/16/2016 Height 66 in 01/12/2016 Weight Measured 179.89 lbs 01/12/2016 BSA (Body Surface Area) 1.16226 01/12/2016 BMI (Body Mass Index) 29.2 01/12/2016 Plan of Care No data in the system Procedures Code Code System Procedure Name Target Site Date of Procedure 37498607 SNOMED Cholecystectomy 01/12/2016 25400047 SNOMED Appendectomy 01/11/2014 905871935 SNOMED Total knee 10/15/2006 replacement 038579651 SNOMED Total knee 08/11/2006 replacement Encounters Date Code Diagnosis Status (ICD10) - R1011 RIGHT UPPER QUADRANT PAIN Active Immunizations Vaccine Code Code System Vaccine [...] BY MOUTH EVERY 6 HOURS NEEDED.[facility] pharmacyNotify Your Physician with Any Questions or ProblemsCall your Physician or report to the Emergency Room if your condition(s) worsen after dischargeActivityResume usual activities unless otherwise indicatedFollow Up AppointmentDr. Levin will schedule appointment with Dr. Guzman [...]
--- OUTSIDE RECORDS SUMMARY | 2017-10-08 19:03 | External Medical Summary ---
:1945 Author Name GENERATED, SYSTEM Care Team Providers Name Role Phone UNASSIGNED DOCTOR MD JULIANN DOCTOR Primary Care Provider [phone] Reason For Visit Chief Complaint LIVER MASS, PROBABLY COLON CA Social History Functional Status Vital Signs Results Problems Encounter Diagnosis No relevant problems exist. Encounters Encounter Diagnosis No relevant problems exist. Plan of Care Procedures No relevant procedures performed. Immunizations No immunizations administered or ordered. Hospital Course Hospital Discharge Instructions Allergies, Adverse Reactions, Alerts Latex Allergy has not been assessed.IV Contrast Allergy has not been assessed. Medication Medication reconciliation has not been performed.
--- OUTSIDE RECORDS SUMMARY | 2017-10-08 19:03 | External Medical Summary | Continuity of Care Document ---
:1945 Author Organization [facility] Care Team Providers Name Role Phone KEVIN MARROQUIN Admitting Physician KEVIN MARROQUIN Attending Physician Hospital Admission Diagnosis Code Admission Diagnosis Date [id number] Primary malignant neoplasm of rectum Social History Element Code Description Smoking Start Date End Date Description Status Code System Smoking Status 489256158 Never smoker SNOMED-CT Problems Code Code System Problem Name Start Date End Date Status 318863449 SNOMED-CT Gallstone Unknown Active 66070681 SNOMED-CT Diabetes Unknown Active mellitus Medications RxNorm Medication Dose Route Instructions Indications Start End Status Date Date Ascorbate 500 Oral orally 2 Active Calcium milligram times per day 148683 Ascorbic Acid 500 Oral orally 2 Active 500 MG Oral milligram times per day Tablet 19740512 Ciprofloxacin 500 MG ORAL ORAL TWO 01/14/ Active 250 MG Oral TIMES DAILY 2016 Tablet 6404 Linseed Oil 1000 Oral orally 2 Active milligram times per day 175721 Lisinopril 5 MG 5 milligram Oral orally every HTN Active Oral Tablet day 19214 Lutein 20 Oral orally once Eyes Active milligram (administer with a meal or snack) 816382 Metformin 500 Oral orally 2 Diabetes Active hydrochloride milligram times per day 500 MG Oral Tablet 952515 Metoclopramide 10 MG ORAL ORAL EVERY 6 01/14/ Active 10 MG Oral HRS NEEDED 2016 Tablet as needed. 813352 Ondansetron 4 MG 4 MG ORAL ORAL EVERY 01/14/ Active Disintegrating FOUR HOURS 2016 Oral Tablet NEEDED as needed. Allergies Code Code Allergy Type Reaction Severity Start End Status System Substance Date Date 7051 RXNorm Morphine Drug Needs oxygen Unknown 01/12/20 Active allergy 16 38298 RXNorm Percocet Drug N/V and Unknown 01/12/20 Active allergy dizziness 16 Results Radiology Results Order: CTCAPC CT Chest Abd Pelvis W/ ContrastExam Completion Date:12/25/2016 16:30 ORIGINALINDICATION: C20 Malignant neoplasm of rectum , C19 Malignant neoplasm ofrectosigmoid junctioCT Chest Abd Pelvis W/Contrast: Axial acquisitions were obtained with use of IV contrast and compared to thestudy dated 10/15/2016.Chest: No thoracic lymphadenopathy is identified. Heart size is normal. Thereis a nodule medially in the left upper lobemeasuring approximately 8 mm.Stable irregular uncalcified nodule in the left lower lobe probably fromscarring. No acute infiltrate or pleural effusion is identified.IMPRESSION: Left upper lobe pulmonary nodule indeterminate for metastasis.This should be followed on subsequent exams. This is new compared to the studyof 08/02/2016.Abdomen pelvis: There are multiple persistent hypodensities in the livercorresponding to areas of treated hepatic metastases. A lesion posteriorly inthe right dome measures 1.8 x 1.6 cm compared with 1.7 x 1.8 cm previously. Alesion in the left lobe measures 1.7 x 1.1 cm compared with 2.1 x 1.4 cm. Alesion centrally in the liver measures 2.4 x 2.3 cm compared with 2.5 x 2.1cm. No new liver lesions are seen. There is cholelithiasis. There issplenomegaly with a stable area of central decreased density. No new spleniclesions. Pancreas adrenal glands and kidneys are unremarkable.Again noted is a spiculated mass in the paracolonic fat measuringapproximately 4 x 8 cm compared with 3.8 x 2.5 cm previously. Postoperativechanges are noted in the region of the cecum. No abdominalor pelviclymphadenopathy is seen.IMPRESSION: continued findings of hepatic metastasis. These appear slightlysmaller. No new liver lesions. Splenomegaly. Spiculated pericolonic mass inthe upper pelvis. Cholelithiasis.Released By STAR NETTLES, MDDate: 12/26/2016 08:40 ADDENDUMCorrection: Spiculated pericolonic mass measures 4 x 2.8 cmReleasedBy STAR NETTLES, MDDate: 12/31 10:07 Vital Signs No data in the system Plan of Care No data in the system Procedures No data in the system Encounters Date Code Diagnosis Status (ICD10) - C20 MALIGNANT NEOPLASM OF RECTUM Active Immunizations Vaccine Code Code System Vaccine Name Date Status 109 CVX 02/09/2015 Completed pneumococcal vaccine, NOS 88 CVX influenza Completed virus vaccine, NOS Functional Status No data in the system Hospital Discharge Instructions No data in the system
[2017-10-08] MEDS ORDERED: ONDANSETRON 4 MG/2 ML INJECTION IVP PRN (19:48)
--- NOTE | 2017-10-08 20:16 | History & Physical Report ---
History of Present Illness Date: 10/08/17 Chief complaint: rash HPI: 72 yo F with PMH of rectal CA w/ [facility] was transferred from an outside facility for a rash that developed yesterday after chemo. She has been taking regorasenib and is on week 3, she reports taking 4 pills yesterday. She denies any rash with this treatment before. She describes the rash as white spots that started on her arm and have gradually moved all over her body. She denies pain or itching with the rash, reports that she thinks heat makes it worse. Reports feeling like she had a mild fever. She has not taken anything for this. She was seen at the cancer center by Dr. Yee today who wanted her transferred to [facility] for further work up. Review of Systems All systems PM: 10-point ROS was reviewed, no additional remarkable complaints except Past Medical History Medical History Updates: Rectal CA Family History: As Above Medications Home Medications Medication Instructions Recorded Confirmed Type Bactroban 2% Cream PRN 10/08/17 History Benzonatate 1 PO TID PRN 10/08/17 History Calcium 500 + Vit D Caplet PO DAILY 10/08/17 History DiphenhydrAMINE [Benadryl] 1 cap PO Q4H PRN 10/08/17 10/08/17 History Flonase Allergy Relief BAO PRN 10/08/17 History Glucosamine Chondroitin Caplet PO DAILY 10/08/17 History Hydrocodone/APAP 5/325 PO Q6H PRN 10/08/17 History LORazepam [Ativan] 0.5 PO Q4H PRN 10/08/17 History Lansoprazole 1 PO DAILY 10/08/17 History Loratadine [Claritin] PO DAILY 10/08/17 History Exam - Constitutional Present: well nourished, well developed - Routine Respiratory Exam Present: CTA bilaterally. Absent: wheezes - Routine Cardiovascular Exam Present: RRR. Absent: murmur - Routine Abdominal Exam Present: soft, normoactive bowel sounds, non distended. Absent: tenderness - Routine Extremities Exam Present: normal capillary refill - Routine Skin Exam Comments: unable to visualize rash over computer screen - Routine Neurological Exam Present: alert, oriented X3, CN II-XII intact - Routine Psychiatric Exam Present: normal affect Assessment and Plan (1) Rash Current visit: Yes Status: Acute (2) Rectal cancer Current visit: Yes Status: Acute Assessment and Plan: patient admitted from [facility]. Will check labs, CBC, CMP, lactic acid and procalcitonin. Blood CX sent. Pt afebrile at this time. Will await full lab results to come back before starting on ABX as do not have a clear source of infection at this time. Rash could be secondary to chemo [place]. DVT Prophylaxis: SCD's Resuscitation Status: Full Code - Physician Narrative Narrative: Date: 10/08/17 Time: 2011 Hospital Course Summary Disclaimer: The visit summary below is not to be considered part of the above Progress Note.
[2017-10-08] MEDS: NS 1,000 ML IV SCH (21:10)
[2017-10-08] MEDS ORDERED: DiphenhydrAMINE 50 MG/ML INJECTION IVP PRN (23:54)
[2017-10-09] MEDS: ACETAMINOPHEN 325 MG TABLET PO PRN ×4 (00:13→23:28)
[2017-10-09] MEDS: HYDROCODONE/APAP 5mg/325mg TABLET PO PRN ×2 (03:58→10:55)
[2017-10-09] MEDS: NYSTATIN 500,000 units/5 ml ORAL LIQUID PO SCH ×5 (04:08→20:46)
[2017-10-09] MEDS: NS 1,000 ML IV SCH ×2 (06:39→16:48)
[2017-10-09] MEDS: DiphenhydrAMINE 50 MG/ML INJECTION IVP PRN ×2 (07:03→17:02)
[2017-10-09] MEDS ORDERED: BENZONATATE 100 MG PO PRN (09:35)
[2017-10-09] MEDS ORDERED: NYSTATIN 500,000 units/5 ml ORAL LIQUID PO PRN (09:35)
[2017-10-09] MEDS ORDERED: POLYETHYL GLYCOL 3350 17gm PACKET PO PRN (09:35)
[2017-10-09] MEDS ORDERED: MethylPREDNISolone 4 MG TABLET PO ONE (12:00)
[2017-10-09] MEDS ORDERED: ACYCLOVIR 400 MG PO SCH (12:00)
[2017-10-09] MEDS: MAGIC MOUTHWASH 5ml PO PRN ×2 (12:01→18:50)
--- NOTE | 2017-10-09 13:33 | XRay Report ---
INDICATION: cough PROCEDURE: CHEST 2-VIEWS UPRIGHT (PA & LAT) Encounter: Initial COMPARISON: None FINDINGS: There is an oval left upper lobe nodule measuring 1.8 cm in size adjacent to the aortic arch. Right lung is clear. No pneumonia, pleural effusion or pneumothorax. Heart size and mediastinal contours are within normal limits. Right IJ port catheter in place with the tip projecting over the mid SVC. Degenerative change in the spine. Impression: Left upper lobe pulmonary nodule. Recommend chest CT for further evaluation. .
--- NOTE | 2017-10-09 14:35 | History & Physical Report ---
History of Present Illness Date: 10/09/17 HPI: was admitted after being seen at [facility] by . Pt has a hx of rectal cancer that has metastasized to liver and lung for which pt started tx last year. Pt started a new chemo regimen about 2.5 weeks ago and has slowly been increasing its dose weekly. The day before yesterday pt took the increased dose of chemo and within a couple of hours pt started getting a rash on her face and arms. In the next day the rash spread to her legs and abdomen and pretty much her entire body. Rash is itchy. Pt reports she doesn't feel great overall as she has had aches and pains in her whole body with fatigue. Pt denies any n/v/d, f/c, cp or sob. Repots some blisters on her lips but reports she gets those everytime she gets chemo. Reports the rash is maybe slightly better this am then it was yesterday. Pt denies taking any other new meds during the timeframe before the rash. Pt also reports blood in urine but no clots for the last week. Pt reports she has a ureter stent in that will be changed in December. For complete H&P please see previous note. Overnight HPI 72 yo F with PMH of rectal CA w/ mets was transferred from an outside facility for a rash that developed yesterday after chemo. She has been taking regorasenib and is on week 3, she reports taking 4 pills yesterday. She denies any rash with this treatment before. She describes the rash as white spots that started on her arm and have gradually moved all over her body. She denies pain or itching with the rash, reports that she thinks heat makes it worse. Reports feeling like she had a mild fever. She has not taken anything for this. She was seen at the cancer center by Dr. Yee today who wanted her transferred to [facility] for further work up. Past Medical History Medical History Updates: Rectal CA Family History: As Above - Social History Smoking status: Never smoker Medications Home Medications Medication Instructions Recorded Confirmed Type Acetaminophen [Tylenol] 650 mg Q5H PRN 10/08/17 10/08/17 History Acyclovir 1 tab PO TID 10/08/17 10/08/17 History Ascorbic Acid [Vitamin C] 1,000 mg PO DAILY 10/08/17 10/08/17 History Benzonatate 100 mg PO TID PRN 10/08/17 10/08/17 History Calcium Carbonate/Vitamin D3 1 each PO DAILY 10/08/17 10/08/17 History [Calcium 600-Vit D3 200 Tablet] DiphenhydrAMINE [Benadryl] 1 cap PO Q4H PRN 10/08/17 10/08/17 History Fluticasone Nasal [place] [Flonase] 2 spray EA NOSTRIL DAILY 10/08/17 10/08/17 History Glucosa De Jesus 2Kcl/Chondroitin De Jesus 1 each PO DAILY 10/08/17 10/08/17 History [Glucosamine Chondroitin [place]] Hydrocodone/Acetaminophen 1 tab PO Q6H PRN 10/08/17 10/08/17 History [Hydrocodon-Acetaminophen 5-325] LORazepam [Ativan] 0.5 mg PO Q4H PRN 10/08/17 10/08/17 History Lansoprazole 30 mg PO DAILY 10/08/17 10/08/17 History Loratadine [Claritin] 10 mg PO DAILY 10/08/17 10/08/17 History Lutein Extract/Zeaxanthin Ext 1 each PO DAILY 10/08/17 10/08/17 History [Lutein 15 mg Softgel] Magic Mouthwash [Magic Mouthwash 5 ml PO ACHS PRN 10/08/17 10/08/17 History (Lido/Maalox/Carafate)] Magnesium Oxide [Magox 400] 2 tab PO AMHS 10/08/17 10/08/17 History Metformin HCl [Fortamet] 500 mg PO BID 10/08/17 10/08/17 History Metoclopramide HCl [Reglan] 10 mg PO Q6-8HR PRN 10/08/17 10/08/17 History Minocycline HCl 100 mg PO BID 10/08/17 10/08/17 History Mirtazapine [Remeron] 30 mg PO HS 10/08/17 10/08/17 History Multivitamin [Multivitamins] 1 each PO DAILY 10/08/17 10/08/17 History Mupirocin Cream [Bactroban 2% 30 gm TP TID PRN 10/08/17 10/08/17 History Cream] Nystatin Oral Liq. [Mycostatin] 5 ml PO TID PRN 10/08/17 10/08/17 History Ondansetron [Zofran Odt] 1 tab PO Q8HR PRN 10/08/17 10/08/17 History PEG 3350 17gm PACKET [Miralax] 17 gm PO TID PRN 10/08/17 10/08/17 History Regorafenib [Stivarga] 4 tab PO DAILY 10/08/17 10/08/17 History methylPREDNISolone [Medrol DOS-RAE] 1 pack PO DAILY 10/08/17 10/08/17 History Lisinopril [Prinivil] 1 mg PO DAILY 10/09/17 10/09/17 History Allergies Allergy/AdvReac Type Severity Reaction Status Date / Time No Known Allergies Allergy Verified 10/08/17 21:00 Exam Vital Signs: Temperature 99.5 F 10/09/17 13:19 Pulse Rate 111 H 10/09/17 13:19 Respiratory Rate 18 10/09/17 13:19 Blood Pressure 120/63 10/09/17 13:19 Pulse Oximetry 98 10/09/17 13:19 Height/Weight/BMI: Height 5 ft 6 in Weight 78 kg Body Mass Index 27.6 - Constitutional Present: no acute distress - Routine HEENT Exam Head: Present: normocephalic, atraumatic Eye: Present: EOMI ENT: Present: mucous membranes moist - Routine Neck Exam Present: supple - Routine Respiratory Exam Present: CTA bilaterally. Absent: wheezes - Routine Cardiovascular Exam Present: RRR, no murmur - Routine Abdominal Exam Present: soft, non distended, non tender - Routine Extremities Exam Present: no edema. Absent: cyanosis, clubbing - Routine Skin Exam Present: intact, dry, rash - Routine Neurological Exam Present: alert, oriented X3 - Routine Psychiatric Exam Present: normal affect Results - Labs CBC & Chem 7: 10/09/17 04:44 10/09/17 04:44 Microbiology Results: Microbiology 10/08/17 20:32 Port/Picc Blood Culture - Preliminary Culture Initiated - Results Pending 10/08/17 20:39 Peripheral/Iv Start Blood Culture - Preliminary Culture Initiated - Results Pending Assessment and Plan (1) Rash Current visit: Yes Status: Acute (2) Rectal cancer Current visit: Yes Status: Acute Assessment and Plan: Drug Rash -Likely from chemo tx, withholding -Monitor as seems stable and possibly improving -Sx's and hematuria with proteinuria some concern for drug induced lupus?-->ALEJANDRO , ds-dna, anti-sm, anti-team foreman, anti-ro/ssa and anti-la/ssb and anti-histone ab, ANCA Thrombocytopenia -Plts reported in 70s during chemo tx so at baseline -Will monitor Hematuria -Unclear urological hx, does have 2+ protein, glomerular bleeding? -Testing per above -Will try to get a hold of urologist Ppx -SCDs - Physician Narrative Narrative: Date: 10/09/17 Time: 1430 Hospital Course Summary Disclaimer: The visit summary below is not to be considered part of the above Progress Note. Hospital Course: 10/09/17 Pt stable, rash is stable but pt also has proteinuria and hematuria so concern for systemic issue, maybe drug induced lupus, will do work up and monitor.
[2017-10-09] MEDS ORDERED: ACYCLOVIR PO SCH (15:00)
[2017-10-09 16:46] VITALS: BMI 27.7
[2017-10-09] MEDS: MIRTAZAPINE 30 MG TABLET PO SCH (20:46)
[2017-10-09] MEDS ORDERED: MINOCYCLINE 100 MG PO SCH (21:00)
[2017-10-09] MEDS ORDERED: MINOCYCLINE HCL 100 MG PO SCH (21:00)
[2017-10-10] MEDS ORDERED: CEFTRIAXONE 1 GM in NS 100 ML IV SCH ×2 (00:42→09:00)
[2017-10-10] MEDS: NS 1,000 ML IV SCH ×2 (03:06→13:23)
[2017-10-10] MEDS ORDERED: MethylPREDNISolone 4 MG TABLET PO SCH (08:00)
[2017-10-10] MEDS ORDERED: [UNRECOGNIZED DRUG - OTHER] PO SCH (09:00)
[2017-10-10] MEDS ORDERED: LANSOPRAZOLE 30 MG PO SCH (09:00)
[2017-10-10] MEDS ORDERED: GLUCOSAMINE/CHONDROITIN 500 MG/400 MG CAPSULE PO SCH (09:00)
[2017-10-10] MEDS ORDERED: NON-FORMULARY MEDICATION 1 EACH EACH (Ascorbic Acid [Vitamin C] 1,000 MG) PO SCH (09:00)
[2017-10-10] MEDS ORDERED: NON-FORMULARY MEDICATION 1 EACH EACH (Calcium Carbonate/Vitamin D3 [Calcium 600-Vit D3 200 PO SCH (09:00)
[2017-10-10] MEDS: HYDROCODONE/APAP 5mg/325mg TABLET PO PRN ×3 (09:33→19:58)
[2017-10-10] MEDS: LISINOPRIL 5 MG TABLET PO SCH (09:33)
[2017-10-10] MEDS: NYSTATIN 500,000 units/5 ml ORAL LIQUID PO SCH ×4 (09:34→20:48)
[2017-10-10] MEDS: MAGIC MOUTHWASH 5ml PO PRN ×4 (09:34→23:56)
[2017-10-10] MEDS ORDERED: ONDANSETRON ODT 4 MG TABLET PO PRN (10:55)
[2017-10-10] MEDS ORDERED: MAGIC MOUTHWASH 5ml PO PRN (10:55)
--- NOTE | 2017-10-10 13:33 | Progress Note ---
- Date 10/10/17 Subjective: Patient is seen today in follow-up of fever and rash likely related to chemotherapy. She reports the rash has improved some. She reports yesterday she was completely red, and today she has some areas of white on her legs. She states that she touches her skin hurts, otherwise no significant symptoms. She complains of sores in her mouth. She has a little bit of left ear and sinus congestion. She had a temp of 104 overnight. No chest pain, shortness of breath , nausea vomiting. Objective Vital signs: Temperature 96.4 F L 10/10/17 12:03 Pulse Rate 98 10/10/17 12:03 Respiratory Rate 16 10/10/17 12:03 Blood Pressure 115/65 10/10/17 12:03 Pulse Oximetry 98 10/10/17 12:03 Height/Weight/BMI: Height 1.68 m Weight 79.7 kg Body Mass Index 27.7 - Constitutional Present: no acute distress, well nourished, well developed - Routine HEENT Exam Head: Present: normocephalic, atraumatic Comments: Sores on the lateral aspect of the tongue - Routine Respiratory Exam Present: CTA bilaterally. Absent: wheezes - Routine Cardiovascular Exam Present: RRR, no murmur - Routine Abdominal Exam Present: soft, non distended, non tender - Routine Extremities Exam Present: no edema, normal capillary refill - Routine Skin Exam Present: erythema (diffuse-covering entire body. She does have more blotchiness on the legs with areas of white interspersed with the red.), dry, warm - Routine Neurological Exam Present: alert, oriented X3 - Routine Lymphatic Exam Lymphatic: Absent: adenopathy - Routine Psychiatric Exam Present: normal affect, cooperative Results - Labs CBC & Chem 7: 10/10/17 14:05 10/10/17 11:41 Microbiology Results: Microbiology 10/08/17 20:32 Port/Picc Blood Culture - Preliminary No Growth After 1 Day 10/08/17 20:39 Peripheral/Iv Start Blood Culture - Preliminary No Growth After 1 Day Urine culture results from [facility] revealed group B strep in the urine Assessment and Plan (1) Rash Current visit: Yes Status: Acute (2) Rectal cancer Current visit: Yes Status: Acute Assessment and Plan: Assessment 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 7.4-->6.8-->2.3. ANC 1.44. Dr Fleming discussed case with Dr. Yee. He recommends patient start Granix. Dr. Fleming discussed case with Dr. Blancas. Will start Cefipime in place of Rocephin for strep agalactiae in urine and neutropenic fever. Many of pt's meds are on hold for unknown reason. Will resume Acyclovir, protonix, Flonase, Vit C and Nystatin. Continue Swizzle for mouth sores. Hold methylprednisolone per Dr. Yee. He doesn't feel it is indicated at this time. DC minocycline in event it is cause of pt's rash. Check blood culture x 2 given temp of 104 overnight (cultures not collected at that time.) Repeat urine culture. CBC with diff in am to calculate ANC. DIC panel pending. BS's stable - will hold metformin for now. DVT Prophylaxis: SCD's Resuscitation Status: Full Code - Physician Narrative Physician: Radha Fleming MD Narrative: Date: 10/10/17 Time: 2019 I have independently evaluated and examined this patient. I reviewed the chart, the patient's history, and the TECHNICAL SALES REPRESENTATIVE/PA's documented findings as above. We discussed and formulated the assessment and plan as above with additions as below Mrs. Ernandez was seen earlier today and case was discussed with Dr. Yee. She reported that her mouth felt "clogged" due to sores in her mouth. She requested that medication for mouth be resumed. She had fevers overnight as discussed above but denies dyspnea. Urine is grossly bloody today. Patient denies lightheadedness or dizziness and reports her skin does not itch and rash is not palpable. NAD, alert Generalized erythematous rash-by report fading on her arms and torso with there is mild erythema which blanches to pressure; moderately intense patchy erythema on the lower extremities-again blanches and nonpalpable. No urticaria, vesicles , or papules. Respirations unlabored, diminished airflow throughout, breath sounds clear. Superficial oral ulcerations lateral tongue left greater than right. ANC just below 1500 Neutropenic fever-ceftriaxone initiated in conjunction with Granix ALEJANDRO pending; was on minocycline previously for acne induced by prior chemotherapeutic medication-no indication for continuation of sean. Chest x-ray reviewed by myself-NAD, left upper lobe nodule present-known pulmonary metastases. She reports having had CT previously. Hospital Course Summary Disclaimer: The visit summary below is not to be considered part of the above Progress Note. Hospital Course: 10/09/17 Admit. Lupus studies pending given possibility of lupus induced drug rash. Follow thrombocytopenia Pt stable, rash is stable but pt also has proteinuria and hematuria so concern for systemic issue. 10/10/17 New neutropenia today. 7.4-->6.8-->2.3. ANC 1.44. Dr Fleming discussed case with Dr. Yee. He recommends patient start Granix. Start Cefipime in place of Rocephin for strep agalactiae in urine and neutropenic fever. Granix given for neutropenia. Many of pt's meds are on hold for unknown reason. Will resume Acyclovir, protonix, Flonase, Vit C and Nystatin. Continue Swizzle for mouth sores. Hold methylprednisolone per Dr. Yee. He doesn't feel it is indicated at this time. DC minocycline in event it is cause of pt's rash. Check blood culture x 2 given temp of 104 overnight (cultures not collected at that time.) Repeat urine culture. CBC with diff in am to calculate ANC. DIC panel pending. BS's stable - will hold metformin for now.
[2017-10-10] MEDS: CEFEPIME 1 GM in NS 100 ML IV SCH ×2 (15:00→19:52)
[2017-10-10] MEDS: TBO-FILGRASTIM 480mcg/0.8ml INJECTION SQ SCH (15:01)
[2017-10-10] MEDS: MAGNESIUM OXIDE 400 MG TABLET PO SCH (20:47)
[2017-10-10] MEDS: ACYCLOVIR 200 MG CAPSULE PO SCH (20:48)
[2017-10-10] MEDS: MIRTAZAPINE 30 MG TABLET PO SCH (23:16)
[2017-10-11] MEDS: NS 1,000 ML IV SCH ×3 (01:02→23:23)
[2017-10-11] MEDS: LORazepam 0.5 MG TABLET PO PRN ×3 (01:05→13:11)
[2017-10-11] MEDS: CEFEPIME 1 GM in NS 100 ML IV SCH ×4 (02:03→20:44)
[2017-10-11] MEDS: MAGIC MOUTHWASH 5ml PO PRN ×3 (04:25→13:06)
[2017-10-11] MEDS: HYDROCODONE/APAP 5mg/325mg TABLET PO PRN ×2 (04:25→10:29)
[2017-10-11] MEDS: LORATADINE 10 MG TABLET PO SCH (06:55)
[2017-10-11] MEDS: PANTOPRAZOLE 40 MG TABLET PO SCH (06:55)
[2017-10-11] MEDS ORDERED: MethylPREDNISolone 4 MG TABLET PO SCH (08:00)
[2017-10-11] MEDS: ACYCLOVIR 200 MG CAPSULE PO SCH ×2 (09:17→20:45)
[2017-10-11] MEDS: LISINOPRIL 5 MG TABLET PO SCH (09:17)
[2017-10-11] MEDS: NYSTATIN 500,000 units/5 ml ORAL LIQUID PO SCH ×4 (09:18→20:45)
[2017-10-11] MEDS: FLUTICASONE NASAL SPRAY 50mcg EA NOSTRIL SCH (09:24)
[2017-10-11] MEDS: ASCORBIC ACID 500 MG TABLET PO SCH (09:25)
[2017-10-11] MEDS: MULTI-VITAMIN PLAIN TABLET PO SCH (09:25)
[2017-10-11] MEDS: MAGNESIUM OXIDE 400 MG TABLET PO SCH ×2 (09:25→20:45)
[2017-10-11] MEDS: CALCIUM 600 + VIT D 400 TABLET PO SCH (12:20)
[2017-10-11] MEDS: TBO-FILGRASTIM 480mcg/0.8ml INJECTION SQ SCH (15:39)
--- NOTE | 2017-10-11 16:08 | Progress Note ---
- Date 10/11/17 Subjective: Ploy is seen today in follow up. She is feeling a little better- reports feeling very fatigued, and is lying in a dark room. Has not gotten much sleep due to multiple tests. Reports her mouth is feeling better now. Objective Vital signs: Temperature 97.5 F 10/11/17 15:46 Pulse Rate 88 10/11/17 15:46 Respiratory Rate 16 10/11/17 15:46 Blood Pressure 105/58 10/11/17 15:46 Pulse Oximetry 99 10/11/17 15:46 Height/Weight/BMI: Height 1.68 m Weight 82 kg Body Mass Index 27.7 - Constitutional Present: no acute distress, well nourished, well developed, cooperative - Routine HEENT Exam Head: Present: normocephalic, atraumatic ENT: Present: mucous membranes moist - Routine Respiratory Exam Present: CTA bilaterally. Absent: rales, rhonchi, wheezes Comments: Right port. - Routine Cardiovascular Exam Present: RRR, S1, S2 - Routine Abdominal Exam Present: soft, normoactive bowel sounds, non distended, non tender - Routine Extremities Exam Present: non tender - Routine Skin Exam Present: intact, dry, warm, rash (Generalized rash. ) - Routine Neurological Exam Present: alert, moving all extremities - Routine Psychiatric Exam Present: cooperative Results - Labs CBC & Chem 7: 10/11/17 04:33 10/11/17 04:33 Labs: Abnormal Labs 10/08/17 10/08/17 10/08/17 20:32 20:32 20:32 WBC RBC Hgb Hct RDW Std Deviation Plt Count 79 L Immature Gran % (Auto) Neut % (Auto) 82.9 H Lymph % (Auto) 13.5 L Neut # (Auto) Lymph # (Auto) Neutrophils % (Manual) Band Neutrophils % Lymphocytes % (Manual) Metamyelocytes % Neutrophils # (Manual) Lymphocytes # (Manual) INR D-Dimer Chloride Carbon Dioxide 20 L BUN 24.0 H Creatinine BUN/Creatinine Ratio 30 H Glucose 127 H Calcium 8.2 L AST 79 H ALT 44 H Alkaline Phosphatase 195 H C-Reactive Protein 66.5 H Total Protein Albumin Albumin/Globulin Ratio Plasma Lactate 2.5 H Urine Protein Urine Occult Blood 3+ A Urine WBC Urine Bacteria 1+ H Anti-Nuclear Antibody SS-A/Ro Antibody 05/10/09/17 10/09/17 20:32 04:44 04:44 WBC RBC Hgb 11.5 L Hct 34.5 L RDW Std Deviation Plt Count 72 L Immature Gran % (Auto) Neut % (Auto) Lymph % (Auto) Neut # (Auto) Lymph # (Auto) Neutrophils % (Manual) 87.0 H Band Neutrophils % Lymphocytes % (Manual) 5.0 L Metamyelocytes % 2.0 H Neutrophils # (Manual) Lymphocytes # (Manual) 0.3 L INR D-Dimer Chloride Carbon Dioxide 19 L BUN 25.0 H Creatinine BUN/Creatinine Ratio 31 H Glucose Calcium 7.9 L AST ALT Alkaline Phosphatase C-Reactive Protein Total Protein Albumin Albumin/Globulin Ratio Plasma Lactate Urine Protein Urine Occult Blood Urine WBC Urine Bacteria Anti-Nuclear Antibody Positive A SS-A/Ro Antibody 162 H 10/09/17 10/10/17 10/10/17 12:50 11:41 11:41 WBC 2.3 L D RBC 3.80 L Hgb 10.7 L Hct 32.3 L RDW Std Deviation Plt Count 59 L Immature Gran % (Auto) 0.9 H Neut % (Auto) Lymph % (Auto) Neut # (Auto) 1.4 L Lymph # (Auto) 0.6 L Neutrophils % (Manual) Band Neutrophils % Lymphocytes % (Manual) Metamyelocytes % Neutrophils # (Manual) Lymphocytes # (Manual) INR D-Dimer Chloride 110 H Carbon Dioxide 19 L BUN 19.0 H Creatinine BUN/Creatinine Ratio Glucose 181 H Calcium 7.5 L AST 56 H ALT Alkaline Phosphatase 176 H C-Reactive Protein Total Protein 5.2 L Albumin 2.6 L Albumin/Globulin Ratio 1.0 L Plasma Lactate Urine Protein 2+ A Urine Occult Blood 3+ A Urine WBC 5-10 H Urine Bacteria Anti-Nuclear Antibody SS-A/Ro Antibody 10/10/17 10/11/17 10/11/17 14:05 04:33 04:33 WBC 2.1 L 11.3 H D RBC 3.87 L Hgb 11.3 L 10.8 L Hct 34.6 L 32.9 L RDW Std Deviation 50.3 H Plt Count 63 L 65 L Immature Gran % (Auto) Neut % (Auto) Lymph % (Auto) Neut # (Auto) Lymph # (Auto) Neutrophils % (Manual) 72.0 H Band Neutrophils % 21.0 H D Lymphocytes % (Manual) 6.0 L Metamyelocytes % Neutrophils # (Manual) 8.1 H Lymphocytes # (Manual) 0.7 L INR 1.24 H D-Dimer 2097 H Chloride 112 H Carbon Dioxide 19 L BUN Creatinine 0.6 L D BUN/Creatinine Ratio 27 H Glucose Calcium 7.7 L AST 48 H ALT Alkaline Phosphatase 202 H C-Reactive Protein Total Protein 5.2 L Albumin 2.6 L Albumin/Globulin Ratio 1.0 L Plasma Lactate Urine Protein Urine Occult Blood Urine WBC Urine Bacteria Anti-Nuclear Antibody SS-A/Ro Antibody Microbiology Results: Microbiology 10/10/17 14:05 Port/Picc Blood Culture - Preliminary No Growth After 1 Day 10/10/17 14:05 Port/Picc Blood Culture - Preliminary No Growth After 1 Day 10/10/17 19:13 Urine, Voided (Cc/notcc) Urine Culture - Preliminary No reportable growth. 10/08/17 20:39 Peripheral/Iv Start Blood Culture - Preliminary No Growth After 2 Days 10/08/17 20:32 Port/Picc Blood Culture - Preliminary No Growth After 2 Days Assessment and Plan (1) Rash Current visit: Yes Status: Acute (2) Rectal cancer Current visit: Yes Status: Acute Assessment and Plan: Assessment Drug rash - ? 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 Cefepime due to S. Agalactiae in urine and neutropenic fever. Acyclovir/PPI/Flonase/Vit C/Nystatin were resumed yesterday. Ongoing Swizzle due to oral mucositis. BC so far NGTD. +ALEJANDRO/SSA are noted- drug induced lupus? Hemorrhagic cystitis? Consider renal/bladder sono? Ongoing dark brown/red urine- nephritis? Significant metastatic rectal cancer- lung mass is noted. Size has increased from outside facility tests 8mm --> 1.8cm. Continues to require close inpatient follow up at this time. - Physician Narrative Narrative: Date: 10/11/17 Time: 1650 S: Pt reports feeling better today, mouth sores are still bothering her. Denies any f/c, n/v/d, cp or sob. O: Gen: AAOx3, no acute distress Lungs: CTAB, no wheezes A/P: Pt improving, will cont. abx, ALEJANDRO panel is partly positive-will review to determine significance, will consider Abd/pelvic CT for hematuria but will also need cystoscopy, unlikely to get a hold of urologist this weekend, leukopenia has responded well to granix. Hospital Course Summary Disclaimer: The visit summary below is not to be considered part of the above Progress Note. Hospital Course: 10/09/17 Admit. Lupus studies pending given possibility of lupus induced drug rash. Follow thrombocytopenia Pt stable, rash is stable but pt also has proteinuria and hematuria so concern for systemic issue. 10/10/17 New neutropenia today. 7.4-->6.8-->2.3. ANC 1.44. Dr Fleming discussed case with Dr. Yee. He recommends patient start Granix. Start Cefipime in place of Rocephin for strep agalactiae in urine and neutropenic fever. Granix given for neutropenia. Many of pt's meds are on hold for unknown reason. Will resume Acyclovir, protonix, Flonase, Vit C and Nystatin. Continue Swizzle for mouth sores. Hold methylprednisolone per Dr. Yee. He doesn't feel it is indicated at this time. DC minocycline in event it is cause of pt's rash. Check blood culture x 2 given temp of 104 overnight (cultures not collected at that time.) Repeat urine culture. CBC with diff in am to calculate ANC. DIC panel pending. BS's stable - will hold metformin for now. Plan 10/11/17 New leukocytosis today- likely due to Granix yesterday. Cefepime due to S. Agalactiae in urine and neutropenic fever. Acyclovir/PPI/Flonase/Vit C/Nystatin were resumed yesterday. Ongoing Swizzle due to oral mucositis. BC so far NGTD. +ALEJANDRO/SSA are noted- drug induced lupus? Hemorrhagic cystitis? Consider renal/bladder sono? Ongoing dark brown/red urine- nephritis? Significant metastatic rectal cancer- lung mass is noted. Size has increased from outside facility tests 8mm --> 1.8cm. Continues to require close inpatient follow up at this time.
[2017-10-11] MEDS: MIRTAZAPINE 30 MG TABLET PO SCH (20:45)
[2017-10-12] MEDS: CEFEPIME 1 GM in NS 100 ML IV SCH ×4 (02:40→19:45)
[2017-10-12] MEDS: LORATADINE 10 MG TABLET PO SCH (07:11)
[2017-10-12] MEDS: PANTOPRAZOLE 40 MG TABLET PO SCH (07:11)
[2017-10-12] MEDS ORDERED: MethylPREDNISolone 4 MG TABLET PO SCH (08:00)
[2017-10-12] MEDS: ASCORBIC ACID 500 MG TABLET PO SCH (09:18)
[2017-10-12] MEDS: MAGNESIUM OXIDE 400 MG TABLET PO SCH ×2 (09:18→21:06)
[2017-10-12] MEDS: MAGIC MOUTHWASH 5ml PO PRN ×3 (09:18→22:35)
[2017-10-12] MEDS: ACYCLOVIR 200 MG CAPSULE PO SCH ×2 (09:18→20:45)
[2017-10-12] MEDS: MULTI-VITAMIN PLAIN TABLET PO SCH (09:18)
[2017-10-12] MEDS: HYDROCODONE/APAP 5mg/325mg TABLET PO PRN ×3 (09:18→20:47)
[2017-10-12] MEDS: LISINOPRIL 5 MG TABLET PO SCH (09:19)
[2017-10-12] MEDS: NYSTATIN 500,000 units/5 ml ORAL LIQUID PO SCH ×4 (09:19→20:48)
[2017-10-12] MEDS: FLUTICASONE NASAL SPRAY 50mcg EA NOSTRIL SCH (09:19)
[2017-10-12] MEDS: LORazepam 0.5 MG TABLET PO PRN ×2 (09:19→15:06)
[2017-10-12] MEDS: NS 1,000 ML IV SCH ×2 (11:30→22:30)
[2017-10-12] MEDS: CALCIUM 600 + VIT D 400 TABLET PO SCH (12:34)
--- NOTE | 2017-10-12 13:41 | Progress Note ---
- Date 10/12/17 Subjective: Pt repots she is feeling better, rash is improving, sores in mouth are about the same. Denies any n/v/d, f/c, cp or sob. Tolerating PO intake okay. Objective Vital signs: Temperature 95.8 F L 10/12/17 11:42 Pulse Rate 104 H 10/12/17 11:42 Respiratory Rate 18 10/12/17 11:42 Blood Pressure 134/66 10/12/17 11:42 Pulse Oximetry 98 10/12/17 11:42 Height/Weight/BMI: Height 5 ft 6 in Weight 83.6 kg Body Mass Index 27.7 - Constitutional Present: no acute distress - Routine HEENT Exam Head: Present: normocephalic, atraumatic - Routine Respiratory Exam Present: CTA bilaterally. Absent: wheezes, crackles - Routine Cardiovascular Exam Present: RRR, no murmur - Routine Abdominal Exam Present: soft, non distended, non tender - Routine Extremities Exam Present: no edema. Absent: cyanosis, clubbing - Routine Skin Exam Present: intact, erythema, dry, rash - Routine Neurological Exam Present: alert, oriented X3 Results - Labs CBC & Chem 7: 10/12/17 04:23 10/12/17 04:23 Microbiology Results: Microbiology 10/10/17 19:13 Urine, Voided (Cc/notcc) Urine Culture - Final No Growth After 2 Days 10/08/17 20:32 Port/Picc Blood Culture - Preliminary No Growth After 3 Days 10/08/17 20:39 Peripheral/Iv Start Blood Culture - Preliminary No Growth After 3 Days 10/10/17 14:05 Port/Picc Blood Culture - Preliminary No Growth After 1 Day 10/10/17 14:05 Port/Picc Blood Culture - Preliminary No Growth After 1 Day Assessment and Plan (1) Rash Current visit: Yes Status: Acute (2) Rectal cancer Current visit: Yes Status: Acute Assessment and Plan: Drug Rash -Likely from chemo tx, withholding -Monitor as seems stable and possibly improving -Sx's and hematuria with proteinuria some concern for drug induced lupus?-->ALEJANDRO , ds-dna, anti-sm, anti-brazing machine tender, anti-ro/ssa and anti-la/ssb and anti-histone ab, ANCA Thrombocytopenia -Plts reported in 70s during chemo tx so at baseline -Will monitor Normocytic Anemia -Hgb trending down, possibly from Hematuria? -Will do iron panel, peripheral smear Leukopenia -Resolved -S/p dose of granix per hem/onc UTI -OSH has strep agalactiae on urine culture positive -In house urine cx NGTD -On Cefepime Hematuria -Drug induced lupus vs. Hemmorrhagic cystitis? -Unclear urological hx, has a ureter stent, does have 2+ protein, glomerular bleeding? -Testing per above -Will try to get a hold of urologist and discuss with oncology Rectal Cancer with mets -Mets in liver/lung -Follows with , on chemo -lung mass is noted. Size has increased from outside facility tests 8mm --> 1.8cm Ppx -SCDs - Physician Narrative Narrative: Date: 10/12/17 Time: 1323 Hospital Course Summary Disclaimer: The visit summary below is not to be considered part of the above Progress Note. Hospital Course: 10/09/17 Admit. Lupus studies pending given possibility of lupus induced drug rash. Follow thrombocytopenia Pt stable, rash is stable but pt also has proteinuria and hematuria so concern for systemic issue. 10/10/17 New neutropenia today. 7.4-->6.8-->2.3. ANC 1.44. Dr Fleming discussed case with Dr. Yee. He recommends patient start Granix. Start Cefipime in place of Rocephin for strep agalactiae in urine and neutropenic fever. Granix given for neutropenia. Many of pt's meds are on hold for unknown reason. Will resume Acyclovir, protonix, Flonase, Vit C and Nystatin. Continue Swizzle for mouth sores. Hold methylprednisolone per Dr. Yee. He doesn't feel it is indicated at this time. DC minocycline in event it is cause of pt's rash. Check blood culture x 2 given temp of 104 overnight (cultures not collected at that time.) Repeat urine culture. CBC with diff in am to calculate ANC. DIC panel pending. BS's stable - will hold metformin for now. Plan 10/11/17 New leukocytosis today- likely due to Granix yesterday. Cefepime due to S. Agalactiae in urine and neutropenic fever. Acyclovir/PPI/Flonase/Vit C/Nystatin were resumed yesterday. Ongoing Swizzle due to oral mucositis. BC so far NGTD. +ALEJANDRO/SSA are noted- drug induced lupus? Hemorrhagic cystitis? Consider renal/bladder sono? Ongoing dark brown/red urine- nephritis? Significant metastatic rectal cancer- lung mass is noted. Size has increased from outside facility tests 8mm --> 1.8cm. Continues to require close inpatient follow up at this time. 10/12/17 Pt continues to improve slowly, need to discuss hematuria with urologist on Friday since pt has ureter stent in place. Will also discuss case with on Friday.
[2017-10-12] MEDS: PHOSPHORUS 250 MG TABLET PO SCH (16:49)
[2017-10-12] MEDS: MIRTAZAPINE 30 MG TABLET PO SCH (20:46)
[2017-10-13] MEDS: CEFEPIME 1 GM in NS 100 ML IV SCH ×4 (03:00→19:42)
--- NOTE | 2017-10-13 06:16 | Consult Note ---
<Kallie Paez - Last Filed: 10/13/17 16:46> Oncology HPI - Data of Consult Requesting Physician: Rupinder Alaniz MD Review of Systems - Constitutional Constitutional: Present: as per HPI, fatigue, weakness - EENT Eyes: Absent: change in vision Mouth/Throat: Present: sores, dry mouth - Cardiovascular Cardiovascular: Absent: chest pain, dyspnea on exertion - Respiratory Respiratory: Absent: cough, wheezing - Gastrointestinal Gastrointestinal: Present: nausea. Absent: vomiting - Genitourinary Genitourinary: Present: hematuria (obvious blood in urine several days ago, slowly improved. Urine dark today, but no obvious blood) - Musculoskeletal Musculoskeletal: Absent: back pain - Integumentary/Breasts Integumentary: Present: rash (rash on day of admit. Improving; denies rash currently) - Neurological Neurological: Present: headache(s) (on day of admit. Denies headache today) - Psychiatric Psychiatric: Absent: depression (verbalizes "I want to fight this.") [facility] Patient Stated Medical History Cataracts Yes: BILAT Dental Problems Yes: DENTURES TOP AND BOTTOM Pneumonia Yes: HX BEFORE 2006 Other Respiratory Yes: REPORTS LUNG NODULES Diabetes Mellitus Type 2 Yes: AT AGE 68 Other GI Yes: COLON CA. LIVER CA. GALLBLADDER PROBLEMS. NOT REMOVED Hx Renal Disease Yes: STENTS IN BLADDER INTO KIDNEYS Hx Urinary Tract Infection Yes Anemia Yes: AGE 11 Chemotherapy Yes Post Menopausal Yes Medications Home Medications Medication Instructions Recorded Confirmed Type Acetaminophen [Tylenol] 650 mg Q5H PRN 10/08/17 10/08/17 History Acyclovir 1 tab PO TID 10/08/17 10/08/17 History Ascorbic Acid [Vitamin C] 1,000 mg PO DAILY 10/08/17 10/08/17 History Benzonatate 100 mg PO TID PRN 10/08/17 10/08/17 History Calcium Carbonate/Vitamin D3 1 each PO DAILY 10/08/17 10/08/17 History [Calcium 600-Vit D3 200 Tablet] DiphenhydrAMINE [Benadryl] 1 cap PO Q4H PRN 10/08/17 10/08/17 History Fluticasone Nasal [place] [Flonase] 2 spray EA NOSTRIL DAILY 10/08/17 10/08/17 History Glucosa [place] 2Kcl/Chondroitin De Jesus 1 each PO DAILY 10/08/17 10/08/17 History [Glucosamine Chondroitin [place]] Hydrocodone/Acetaminophen 1 tab PO Q6H PRN 10/08/17 10/08/17 History [Hydrocodon-Acetaminophen 5-325] LORazepam [Ativan] 0.5 mg PO Q4H PRN 10/08/17 10/08/17 History Lansoprazole 30 mg PO DAILY 10/08/17 10/08/17 History Loratadine [Claritin] 10 mg PO DAILY 10/08/17 10/08/17 History Lutein Extract/Zeaxanthin Ext 1 each PO DAILY 10/08/17 10/08/17 History [Lutein 15 mg Softgel] Magic Mouthwash [Magic Mouthwash 5 ml PO ACHS PRN 10/08/17 10/08/17 History (Lido/Maalox/Carafate)] Magnesium Oxide [Magox 400] 2 tab PO AMHS 10/08/17 10/08/17 History Metformin HCl [Fortamet] 500 mg PO BID 10/08/17 10/08/17 History Metoclopramide HCl [Reglan] 10 mg PO Q6-8HR PRN 10/08/17 10/08/17 History Minocycline HCl 100 mg PO BID 10/08/17 10/08/17 History Mirtazapine [Remeron] 30 mg PO HS 10/08/17 10/08/17 History Multivitamin [Multivitamins] 1 each PO DAILY 10/08/17 10/08/17 History Mupirocin Cream [Bactroban 2% 30 gm TP TID PRN 10/08/17 10/08/17 History Cream] Nystatin Oral Liq. [Mycostatin] 5 ml PO TID PRN 10/08/17 10/08/17 History Ondansetron [Zofran Odt] 1 tab PO Q8HR PRN 10/08/17 10/08/17 History PEG 3350 17gm PACKET [Miralax] 17 gm PO TID PRN 10/08/17 10/08/17 History Regorafenib [Stivarga] 4 tab PO DAILY 10/08/17 10/08/17 History methylPREDNISolone [Medrol DOS-RAE] 1 pack PO DAILY 10/08/17 10/08/17 History Lisinopril [Prinivil] 1 mg PO DAILY 10/09/17 10/09/17 History Allergies Allergy/AdvReac Type Severity Reaction Status Date / Time No Known Allergies Allergy Verified 10/08/17 21:00 Exam Vital signs: Temperature 98.2 F 10/13/17 15:45 Pulse Rate 101 H 10/13/17 15:45 Respiratory Rate 18 10/13/17 15:45 Blood Pressure 135/68 10/13/17 15:45 Pulse Oximetry 100 10/13/17 15:45 - Constitutional no acute distress, well developed, cooperative - Routine HEENT Exam Head: Present: normocephalic Eye: Present: EOMI ENT: Present: mucous membranes dry (lips dry, no obvious/overt lesions) - Routine Neck Exam Present: supple. Absent: lymphadenopathy - Routine Respiratory Exam Present: CTA bilaterally - Routine Cardiovascular Exam Present: RRR, no murmur - Routine Abdominal Exam Present: soft, non tender. Absent: mass - Routine Extremities Exam Present: edema (trace1+ edema bilateral lower extremities to knee) - Routine Back/Spine/Pelvis Exam Back/Spine: Absent: vertebral tenderness - Routine Skin Exam Present: intact, dry. Absent: rash - Routine Neurological Exam Present: alert, oriented X3, moving all extremities - Routine Psychiatric Exam Present: normal affect, cooperative Oncology Results - Labs CBC & Chem 7: 10/13/17 08:39 10/13/17 08:39 Labs: Short CBC 10/13/17 Range/Units 08:39 WBC 7.6 (4.5-11.0) T/MM3 Hgb 10.4 L (12-16) GM/DL Hct 32.5 L D (36-46) % Plt Count 93 L D (130-400) T/MM3 BMP 10/13/17 08:39 Sodium 146 H Potassium 3.9 Chloride 115 H Carbon Dioxide 23 BUN 11.0 Creatinine 0.5 L Glucose 130 H Calcium 7.7 L Urine 10/13/17 Range/Units 14:07 Urine Color Yellow (YELLOW) Urine Clarity Clear Urine pH 5.5 (5.0-8.0) Ur Specific [place] <=1.005 L (1.015-1.025) Urine Protein Negative (NEGATIVE) Urine Glucose (UA) Negative (NEGATIVE) <Maury Yee D - Last Filed: 10/13/17 18:09> Oncology HPI - Data of Consult Patient: known to practice within the last 3 years Consult date: 10/13/17 Requesting Physician: Rupinder Alaniz MD - Consult Narrative Reason for consult: Rectosigmoid cancer Rash History of present illness: 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 No primary surgery. Dx January 2016. No Primary surgery. Treatment with Folfox, Erbitux Folfuri. Most recently Erbitux single agent and for progression started Stivarga 3 weeks ago. Presented 10/07 with sudden onset of diffuse macuolpapular rash. Progressed with lactic acidosis on 10/08 Bili elevated at 2.4 Seen at [facility] and Blood and urine cultures obtained. Transfered to [facility] and lactate elevated. Transfered to [facility] [place]. Rash progressively worsened from 10/07 to 10/08. Rash is now fading but has developed cracking and ulceration of lips making oral intake difficult. Phosphorus low. Albumin decreasing. [facility] Patient Stated Medical History Cataracts Yes: BILAT Dental Problems Yes: DENTURES TOP AND BOTTOM Pneumonia Yes: HX BEFORE 2006 Other Respiratory Yes: REPORTS LUNG NODULES Diabetes Mellitus Type 2 Yes: AT AGE 68 Other GI Yes: COLON CA. LIVER CA. GALLBLADDER PROBLEMS. NOT REMOVED Hx Renal Disease Yes: STENTS IN BLADDER INTO KIDNEYS Hx Urinary Tract Infection Yes Anemia Yes: AGE 11 Chemotherapy Yes Post Menopausal Yes Medical History Updates: Rectal CA - Social History Smoking status: Never smoker Exam Vital signs: Temperature 97 F 10/13/17 02:00 Pulse Rate 96 10/13/17 02:00 Respiratory Rate 18 10/13/17 02:00 Blood Pressure 129/67 10/13/17 02:00 Pulse Oximetry 97 10/13/17 02:00 Oncology Results - Labs CBC & Chem 7: 10/13/17 08:39 10/13/17 08:39 Labs: Short CBC 10/12/17 Range/Units 04:23 WBC 6.9 (4.5-11.0) T/MM3 Hgb 9.5 L D (12-16) GM/DL Hct 29.2 L D (36-46) % Plt Count 65 L (130-400) T/MM3 Assessment and Plan Assessment and Plan: Metastatic Rectosigmoid cancer with liver metastasis and question of lung lesion. S/P Folfox, Folfuri Erbitux and erbitux single agent because of toxicity. Progressed September 2017. Started Stivarga. Developed rash 2 weeks into therapy. Rash is improving but lips are worse since last week. 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 ALEJANDRO and SSA positive. Would culture lip for virus and consider antiviral therapy. Supportive care to maintain nutrition and fluid balance. 2. 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 Hematuria Urine culture from 10/08 grew Group B Strep. On Cefapime 3. Thrombocytopenia. Prior therapy vs DIC. Elevated D Dimer. P Smear pending. Diff has meta and myelocytes worrisome for bone marrow process 4. Liver metastasis. 5. Sjogren's syndrome 6. Skin rash Drug related. improving on face. Still present on legs. 7. Hypoalbuminemia secondary to inadequate oral intake form lip ulceration. Laboratory Tests 10/08/17 10/08/17 10/08/17 20:32 20:32 20:32 WBC Plt Count Neut # (Auto) Metamyelocytes % Myelocytes % Neutrophils # (Manual) INR Fibrinogen D-Dimer DIC Score Sodium Potassium Chloride Carbon Dioxide BUN Creatinine Calcium Phosphorus Iron TIBC % Saturation Total Bilirubin 1.20 AST 79 H ALT 44 H Alkaline Phosphatase 195 H C-Reactive Protein 66.5 H Albumin Plasma Lactate 2.5 H Procalcitonin 0.51 Urine WBC Anti-Nuclear Antibody Positive A SS-A/Ro Antibody 162 H 10/09/17 10/09/17 10/09/17 00:33 04:44 12:50 WBC 6.8 Plt Count 72 L Neut # (Auto) Metamyelocytes % Myelocytes % Neutrophils # (Manual) 5.9 INR Fibrinogen D-Dimer DIC Score Sodium Potassium Chloride Carbon Dioxide BUN Creatinine Calcium Phosphorus Iron TIBC % Saturation Total Bilirubin AST ALT Alkaline Phosphatase C-Reactive Protein Albumin Plasma Lactate 1.5 Procalcitonin Urine WBC 5-10 H Anti-Nuclear Antibody SS-A/Ro Antibody 10/10/17 10/10/17 10/10/17 11:41 11:41 14:05 WBC 2.3 L D 2.1 L Plt Count 59 L 63 L Neut # (Auto) 1.4 L Metamyelocytes % Myelocytes % Neutrophils # (Manual) INR 1.24 H Fibrinogen 230 D-Dimer 2097 H DIC Score 2 Sodium Potassium Chloride Carbon Dioxide BUN Creatinine Calcium Phosphorus Iron TIBC % Saturation Total Bilirubin AST ALT Alkaline Phosphatase 176 H C-Reactive Protein Albumin 2.6 L Plasma Lactate Procalcitonin Urine WBC Anti-Nuclear Antibody SS-A/Ro Antibody 10/11/17 10/11/17 10/12/17 04:33 04:33 04:23 WBC 11.3 H D 6.9 Plt Count 65 L 65 L Neut # (Auto) Metamyelocytes % 1.0 H Myelocytes % 1.0 H Neutrophils # (Manual) 8.1 H 4.5 INR Fibrinogen D-Dimer DIC Score Sodium Potassium Chloride Carbon Dioxide BUN Creatinine Calcium Phosphorus Iron TIBC % Saturation Total Bilirubin 0.80 AST 48 H ALT 30 Alkaline Phosphatase 202 H C-Reactive Protein Albumin 2.6 L Plasma Lactate Procalcitonin Urine WBC Anti-Nuclear Antibody SS-A/Ro Antibody 10/12/17 10/12/17 04:23 04:23 WBC Plt Count Neut # (Auto) Metamyelocytes % Myelocytes % Neutrophils # (Manual) INR Fibrinogen D-Dimer DIC Score Sodium 141 Potassium 4.2 Chloride 114 H Carbon Dioxide 22 BUN 13.0 Creatinine 0.6 L Calcium 7.4 L Phosphorus 1.3 L Iron 31 L TIBC 228 L % Saturation 14 Total Bilirubin AST ALT Alkaline Phosphatase C-Reactive Protein Albumin 2.3 L Plasma Lactate Procalcitonin Urine WBC Anti-Nuclear Antibody SS-A/Ro Antibody Recommendations. Check B 12 and Folate MMA and Homocysteine. Supportive Care Viral culture of lips on prophylactic acyclovir. If herpetic virus cultured, increase dose.
[2017-10-13] MEDS: PANTOPRAZOLE 40 MG TABLET PO SCH (06:30)
[2017-10-13] MEDS: LORATADINE 10 MG TABLET PO SCH (06:31)
[2017-10-13] MEDS: MAGIC MOUTHWASH 5ml PO PRN ×2 (06:51→22:20)
[2017-10-13] MEDS: HYDROCODONE/APAP 5mg/325mg TABLET PO PRN (06:51)
--- NOTE | 2017-10-13 07:25 | Ultrasound Report ---
Indication: hematuria PROCEDURE: US renal BI: Encounter: Initial Comparison: None Technique: Grayscale and color Doppler sonographic imaging of both kidneys was performed. FINDINGS: Both kidneys are present with normal cortical thickness and echogenicity. No evidence for collecting system dilatation, contour deforming mass, nephrolithiasis, or abnormal perinephric fluid collection. The right kidney measures 12.2 cm in length, and the left kidney measures 11.3 cm in length. IMPRESSION: Normal renal sonogram. There is a preliminary report by [facility]. .
[2017-10-13] MEDS ORDERED: MethylPREDNISolone 4 MG TABLET PO SCH (08:00)
[2017-10-13] MEDS: MULTI-VITAMIN PLAIN TABLET PO SCH (08:43)
[2017-10-13] MEDS: MAGNESIUM OXIDE 400 MG TABLET PO SCH ×2 (08:43→22:19)
[2017-10-13] MEDS: LISINOPRIL 5 MG TABLET PO SCH (08:43)
[2017-10-13] MEDS: ASCORBIC ACID 500 MG TABLET PO SCH (08:43)
[2017-10-13] MEDS: FLUTICASONE NASAL SPRAY 50mcg EA NOSTRIL SCH (08:45)
[2017-10-13] MEDS: PHOSPHORUS 250 MG TABLET PO SCH ×3 (08:45→17:10)
[2017-10-13] MEDS: ACYCLOVIR 200 MG CAPSULE PO SCH ×2 (08:45→22:19)
[2017-10-13] MEDS: NYSTATIN 500,000 units/5 ml ORAL LIQUID PO SCH ×4 (08:46→22:20)
[2017-10-13] MEDS: NS 1,000 ML IV SCH (09:55)
[2017-10-13] MEDS ORDERED: FUROSEMIDE 40 MG/4 ML INJECTION IVP SCH (12:00)
--- NOTE | 2017-10-13 12:17 | Progress Note ---
- Date 10/13/17 Subjective: Pt repots feeling better this am, denies any cp, n/v/d, f/c or sob. Pt reports both her legs are a bit swollen but her rash is better everywhere and her lips and mouth have improved. Tolerating PO intake ok. Objective Vital signs: Temperature 96.0 F L 10/13/17 11:12 Pulse Rate 89 10/13/17 11:12 Respiratory Rate 18 10/13/17 11:12 Blood Pressure 127/68 10/13/17 11:12 Pulse Oximetry 98 10/13/17 11:12 Height/Weight/BMI: Height 5 ft 6 in Weight 84.8 kg Body Mass Index 27.7 - Constitutional Present: no acute distress - Routine HEENT Exam Head: Present: normocephalic, atraumatic Eye: Present: EOMI - Routine Respiratory Exam Present: CTA bilaterally. Absent: wheezes, crackles - Routine Cardiovascular Exam Present: RRR, no murmur - Routine Abdominal Exam Present: soft, non distended, non tender - Routine Extremities Exam Present: edema. Absent: cyanosis, clubbing - Routine Skin Exam Present: intact, erythema, dry, rash - Routine Neurological Exam Present: alert, oriented X3 Results - Labs CBC & Chem 7: 10/13/17 08:39 10/13/17 08:39 Microbiology Results: Microbiology 10/08/17 20:32 Port/Picc Blood Culture - Preliminary No Growth After 4 Days 10/08/17 20:39 Peripheral/Iv Start Blood Culture - Preliminary No Growth After 4 Days 10/10/17 14:05 Port/Picc Blood Culture - Preliminary No Growth After 2 Days 10/10/17 14:05 Port/Picc Blood Culture - Preliminary No Growth After 2 Days 10/10/17 19:13 Urine, Voided (Cc/notcc) Urine Culture - Final No Growth After 2 Days Assessment and Plan (1) Rash Current visit: Yes Status: Acute (2) Rectal cancer Current visit: Yes Status: Acute Assessment and Plan: Drug Rash -Much improved, likely from chemo tx -Holding chemo regimen Thrombocytopenia -Plts reported in 70s during chemo tx so at baseline -Will monitor, stable Normocytic Anemia -Iron panel consistent with Anemia of chronic disease -Hematuria possibly contributing? -peripheral smear pending, B12/folate -Hem/onc recommended ordering B12/Folate, homocysteine and MMA Sjogrens -Likely why lip/mouth inflammation is worse with chemo tx -Ab test came back positive -Supportive care, hem/onc recommended HSV cx test Leukopenia -Resolved -S/p dose of granix per hem/onc UTI -OSH has strep agalactiae on urine culture positive -In house urine cx NGTD -On Cefepime LE Edema -Likely from fluid administration -Will do lasix IV Hematuria -Hemmorrhagic cystitis? -Unclear urological hx, has a ureter stent, does have 2+ protein, glomerular bleeding? -Testing for drug induced lupus was negative -Will try to get a hold of urologist and discuss with oncology Rectal Cancer with mets -Mets in liver/lung -Follows with , was on chemo -lung mass is noted. Size has increased from outside facility tests 8mm --> 1.8cm Ppx -SCDs - Physician Narrative Narrative: Date: 10/13/17 Time: 1205 Hospital Course Summary Disclaimer: The visit summary below is not to be considered part of the above Progress Note. Hospital Course: 10/09/17 Admit. Lupus studies pending given possibility of lupus induced drug rash. Follow thrombocytopenia Pt stable, rash is stable but pt also has proteinuria and hematuria so concern for systemic issue. 10/10/17 New neutropenia today. 7.4-->6.8-->2.3. ANC 1.44. Dr Fleming discussed case with Dr. Yee. He recommends patient start Granix. Start Cefipime in place of Rocephin for strep agalactiae in urine and neutropenic fever. Granix given for neutropenia. Many of pt's meds are on hold for unknown reason. Will resume Acyclovir, protonix, Flonase, Vit C and Nystatin. Continue Swizzle for mouth sores. Hold methylprednisolone per Dr. Yee. He doesn't feel it is indicated at this time. DC minocycline in event it is cause of pt's rash. Check blood culture x 2 given temp of 104 overnight (cultures not collected at that time.) Repeat urine culture. CBC with diff in am to calculate ANC. DIC panel pending. BS's stable - will hold metformin for now. Plan 10/11/17 New leukocytosis today- likely due to Granix yesterday. Cefepime due to S. Agalactiae in urine and neutropenic fever. Acyclovir/PPI/Flonase/Vit C/Nystatin were resumed yesterday. Ongoing Swizzle due to oral mucositis. BC so far NGTD. +ALEJANDRO/SSA are noted- drug induced lupus? Hemorrhagic cystitis? Consider renal/bladder sono? Ongoing dark brown/red urine- nephritis? Significant metastatic rectal cancer- lung mass is noted. Size has increased from outside facility tests 8mm --> 1.8cm. Continues to require close inpatient follow up at this time. 10/12/17 Pt continues to improve slowly, need to discuss hematuria with urologist on Friday since pt has ureter stent in place. Will also discuss case with on Friday. 10/13/2017 Pt continues to improve, will try to discuss hematuria with urologist today, wants to continue to monitor the pt in the hospital.
[2017-10-13] MEDS: CALCIUM 600 + VIT D 400 TABLET PO SCH (13:08)
[2017-10-13] MEDS ORDERED: NS FLUSH BAG 500ml IV PRN (13:38)
[2017-10-13] MEDS ORDERED: FUROSEMIDE 40 MG/4 ML INJECTION IVP ONE (21:00)
[2017-10-13] MEDS: MIRTAZAPINE 30 MG TABLET PO SCH (22:19)
[2017-10-14] MEDS: HYDROCODONE/APAP 5mg/325mg TABLET PO PRN (00:11)
[2017-10-14 01:11] VITALS: RESP 16
[2017-10-14] MEDS: CEFEPIME 1 GM in NS 100 ML IV SCH ×2 (02:00→08:01)
[2017-10-14] MEDS: PANTOPRAZOLE 40 MG TABLET PO SCH (06:41)
[2017-10-14] MEDS: LORATADINE 10 MG TABLET PO SCH (06:41)
[2017-10-14] MEDS: MAGNESIUM OXIDE 400 MG TABLET PO SCH (08:02)
[2017-10-14] MEDS: PHOSPHORUS 250 MG TABLET PO SCH (08:02)
[2017-10-14 08:06] VITALS: BP 146/68; PULSE 94; TEMP 97.9; O2SAT 97
[2017-10-14] MEDS: NYSTATIN 500,000 units/5 ml ORAL LIQUID PO SCH (08:09)
[2017-10-14] MEDS: ACYCLOVIR 200 MG CAPSULE PO SCH (08:21)
[2017-10-14] MEDS: ASCORBIC ACID 500 MG TABLET PO SCH (08:21)
[2017-10-14] MEDS: MULTI-VITAMIN PLAIN TABLET PO SCH (08:22)
[2017-10-14] MEDS: LISINOPRIL 5 MG TABLET PO SCH (08:22)
[2017-10-14] MEDS: FLUTICASONE NASAL SPRAY 50mcg EA NOSTRIL SCH (08:22)
[2017-10-14] MEDS: MAGIC MOUTHWASH 5ml PO PRN (08:23)
[2017-10-14] MEDS ORDERED: FUROSEMIDE 40 MG TABLET PO ONE (10:00)
--- NOTE | 2017-10-14 12:03 | Discharge Summary ---
Discharge Information Date of admission: 10/10/17 10:54 Anticipated date of discharge: 10/14/17 Attending Physician: Rupinder Alaniz MD Consults: 10/12/17 13:44 Physician Consult [CONS] Routine Consulting Provider: Maury Yee Reason For Exam: rectal cancer Ordering Provider has Notified Label Folder: Yes - Discharge Diagnosis (1) Rash Status: Acute (2) Rectal cancer Status: Acute - Laboratory Labs: 10/13/17 08:39 10/14/17 08:43 - Microbiology Microbiology 10/08/17 20:39 Peripheral/Iv Start Blood Culture - Final No Growth After 5 Days 10/08/17 20:32 Port/Picc Blood Culture - Final No Growth After 5 Days 10/10/17 14:05 Port/Picc Blood Culture - Preliminary No Growth After 3 Days 10/10/17 14:05 Port/Picc Blood Culture - Preliminary No Growth After 3 Days 10/10/17 19:13 Urine, Voided (Cc/notcc) Urine Culture - Final No Growth After 2 Days History of Present Illness HPI: was admitted after being seen at [facility] by . Pt has a hx of rectal cancer that has metastasized to liver and lung for which pt started tx last year. Pt started a new chemo regimen about 2.5 weeks ago and has slowly been increasing its dose weekly. The day before yesterday pt took the increased dose of chemo and within a couple of hours pt started getting a rash on her face and arms. In the next day the rash spread to her legs and abdomen and pretty much her entire body. Rash is itchy. Pt reports she doesn't feel great overall as she has had aches and pains in her whole body with fatigue. Pt denies any n/v/d, f/c, cp or sob. Repots some blisters on her lips but reports she gets those everytime she gets chemo. Reports the rash is maybe slightly better this am then it was yesterday. Pt denies taking any other new meds during the timeframe before the rash. Pt also reports blood in urine but no clots for the last week. Pt reports she has a ureter stent in that will be changed in December. For complete H&P please see previous note. Overnight HPI 72 yo F with PMH of rectal CA w/ mets was transferred from an outside facility for a rash that developed yesterday after chemo. She has been taking regorasenib and is on week 3, she reports taking 4 pills yesterday. She denies any rash with this treatment before. She describes the rash as white spots that started on her arm and have gradually moved all over her body. She denies pain or itching with the rash, reports that she thinks heat makes it worse. Reports feeling like she had a mild fever. She has not taken anything for this. She was seen at the cancer center by Dr. Yee today who wanted her transferred to [facility] for further work up. Objective Vital signs: Temperature 97.9 F 10/14/17 08:00 Pulse Rate 94 10/14/17 08:00 Respiratory Rate 16 10/14/17 08:00 Blood Pressure 146/68 H 10/14/17 08:00 Pulse Oximetry 97 10/14/17 08:00 Height/Weight/BMI: Height 5 ft 6 in Weight 82.5 kg Body Mass Index 27.7 - Constitutional Present: no acute distress - Routine HEENT Exam Head: Present: normocephalic, atraumatic Eye: Present: EOMI ENT: Present: mucous membranes moist - Routine Respiratory Exam Present: CTA bilaterally. Absent: wheezes - Routine Cardiovascular Exam Present: RRR, no murmur - Routine Abdominal Exam Present: soft, non distended, non tender - Routine Extremities Exam Present: edema. Absent: cyanosis, clubbing - Routine Skin Exam Present: intact, dry. Absent: erythema - Routine Neurological Exam Present: alert, oriented X3 - Routine Psychiatric Exam Present: normal affect Hospital Course This is a general summary of the patient's hospital course. For more details refer to the complete medical record. Brief Summary: Pt was admitted after seeing at [facility] for a maculopapular rash that was all over her body, including all extremities and torso. The rash was thought to be from her chemo tx. Pt had swelling of her lips and mild ulceration around her mouth. Pt also noted her eyes were bothering her. Pt also had gross hematuria that she noted started about a week ago and UA also showed proteinuria. Testing for Pt also had thrombocytopenia but noted thats where pt's platelets had been during her chemo tx so it was stable. Pt's urine cx from [facility] tested positive for GBS and there was some concern for neutropenic fever and so pt received Cefepime for 4 days. Blood cx's were negative. Pt does have a ureter stent in and follows with Dr.Ryan Shane in [place] for urology and after discussing the case with him, he noted that hematuria can happen with stents and that he recommended the pt make an apt with his office to get the stent changed in 2-4 weeks. This information was relayed to the pt. Pt was sent home on 3 additional days of amoxicillin. Pt also had LE edema d/t IV fluids she got in hospital, she received 2 doses of IV lasix and one dose of PO lasix that she wanted to take when she got home. Pt was given potassium supplements while in the hospital. On day of discharge pt was doing well and wanted to go home. Labs were stable. Pt was recommended to f/ u with 's office in 1-2 weeks and her pcp as well. Pt will also need to follow up with her urologist in the next 2-4 weeks for stent change. Pt was ambulating and tolerating PO intake well. Her rash had almost completely resolved and her mouth ulceration and swelling was much improved. Hematuria had improved as well. Hospital course: 10/09/17 Admit. Lupus studies pending given possibility of lupus induced drug rash. Follow thrombocytopenia Pt stable, rash is stable but pt also has proteinuria and hematuria so concern for systemic issue. 10/10/17 New neutropenia today. 7.4-->6.8-->2.3. ANC 1.44. Dr Fleming discussed case with Dr. Yee. He recommends patient start Granix. Start Cefipime in place of Rocephin for strep agalactiae in urine and neutropenic fever. Granix given for neutropenia. Many of pt's meds are on hold for unknown reason. Will resume Acyclovir, protonix, Flonase, Vit C and Nystatin. Continue Swizzle for mouth sores. Hold methylprednisolone per Dr. Yee. He doesn't feel it is indicated at this time. DC minocycline in event it is cause of pt's rash. Check blood culture x 2 given temp of 104 overnight (cultures not collected at that time.) Repeat urine culture. CBC with diff in am to calculate ANC. DIC panel pending. BS's stable - will hold metformin for now. Plan 10/11/17 New leukocytosis today- likely due to Granix yesterday. Cefepime due to S. Agalactiae in urine and neutropenic fever. Acyclovir/PPI/Flonase/Vit C/Nystatin were resumed yesterday. Ongoing Swizzle due to oral mucositis. BC so far NGTD. +ALEJANDRO/SSA are noted- drug induced lupus? Hemorrhagic cystitis? Consider renal/bladder sono? Ongoing dark brown/red urine- nephritis? Significant metastatic rectal cancer- lung mass is noted. Size has increased from outside facility tests 8mm --> 1.8cm. Continues to require close inpatient follow up at this time. 10/12/17 Pt continues to improve slowly, need to discuss hematuria with urologist on Friday since pt has ureter stent in place. Will also discuss case with on Friday. 10/13/2017 Pt continues to improve, will try to discuss hematuria with urologist today, wants to continue to monitor the pt in the hospital. Discharge Plan - Discharge Disposition Disposition: Discharged Home, Self-Care *Condition: Stable Reason For Visit (Visit label in EMR): Drug rash - Discharge Medications *Discharge Medications: New Amoxicillin 1 cap PO Q8H #9 cap Continue DiphenhydrAMINE [Benadryl] 1 cap PO Q4H PRN PRN Reason: Rash Benzonatate 100 mg PO TID PRN PRN Reason: Cough Lansoprazole 30 mg PO DAILY Multivitamin [Multivitamins] 1 each PO DAILY Acyclovir 1 tab PO TID Ondansetron [Zofran Odt] 1 tab PO Q8HR PRN PRN Reason: Nausea Regorafenib [Stivarga] 4 tab PO DAILY Metoclopramide HCl [Reglan] 10 mg PO Q6-8HR PRN PRN Reason: Nausea Nystatin Oral Liq. [Mycostatin] 5 ml PO TID PRN PRN Reason: See Comments Below Mirtazapine [Remeron] 30 mg PO HS PEG 3350 17gm PACKET [Miralax] 17 gm PO TID PRN PRN Reason: Constipation Minocycline HCl 100 mg PO BID Metformin HCl [Fortamet] 500 mg PO BID methylPREDNISolone [Medrol DOS-RAE] 1 pack PO DAILY Magnesium Oxide [Magox 400] 2 tab PO AMHS Magic Mouthwash [Magic Mouthwash (Lido/Maalox/Carafate)] 5 ml PO ACHS PRN PRN Reason: See Comments Below Lutein Extract/Zeaxanthin Ext [Lutein 15 mg Softgel] 1 each PO DAILY Hydrocodone/Acetaminophen [Hydrocodon-Acetaminophen 5-325] 1 tab PO Q6H PRN PRN Reason: Pain Glucosa De Jesus 2Kcl/Chondroitin De Jesus [Glucosamine Chondroitin Caplet] 1 each PO DAILY Fluticasone Nasal Beecher [Flonase] 2 spray EA NOSTRIL DAILY Calcium Carbonate/Vitamin D3 [Calcium 600-Vit D3 200 Tablet] 1 each PO DAILY Lisinopril [Prinivil] 1 mg PO DAILY Loratadine [Claritin] 10 mg PO DAILY Mupirocin Cream [Bactroban 2% Cream] 30 gm TP TID PRN PRN Reason: See Comments Below Ascorbic Acid [Vitamin C] 1,000 mg PO DAILY LORazepam [Ativan] 0.5 mg PO Q4H PRN PRN Reason: Nausea No Action Acetaminophen [Tylenol] 650 mg Q5H PRN PRN Reason: Pain - Discharge Packet/Instructions *Diet: Regular *Activity: As tolerated *Pain Management/Treatment: NA *Wound Care: NA Additional Instructions: Follow up with PCP and in 1-2 weeks. Follow up with Urologist in 2-4 weeks for stent change *Expected Signs/Symptoms: Mild blood in urine, rash getting better *Notify Physician if: If blood in urine gets much worse with clots. If fever/ chills, rash getting worse *During Business Hours Contact: PCP, *After Business Hours Contact: Urgent care/ER *Pending Lab/Results: No Pending Lab - Referrals/Follow Up - Patient Handouts Patient Handouts: COPD (Chronic Obstructive Pulmonary Disease) (GEN) - Dismissal Complete Discharge Instructions are:: Complete Physician Narrative - Narrative Attestation Narrative: Date: 10/14/17 Time: 1128
--- NOTE | 2017-10-14 12:58 | Progress Note ---
<Kallie Paez - Last Filed: 10/14/17 12:59> Oncology Subjective General: No fever, no night sweats Eyes: No redness, no pain, no diplopia ENT: No mouth sores, no trouble swallowing Cardiac: No chest pain no palpitations Pulmonary: No cough, no shortness of breath, no wheezing Abdomen: No pain, no nausea vomiting, no diarrhea or constipation : No urgency, frequency, dysuria, or hematuria Musculoskeletal: No arthritis, no myalgias Neurological: No headaches, no focal weakness Skin: No rash, no sores Psychiatric: No anxiety, no depression Exam Vital signs: Temperature 97.9 F 10/14/17 08:00 Pulse Rate 94 10/14/17 08:00 Respiratory Rate 16 10/14/17 08:00 Blood Pressure 146/68 H 10/14/17 08:00 Pulse Oximetry 97 10/14/17 08:00 Oncology Results - Labs CBC & Chem 7: 10/13/17 08:39 10/14/17 08:43 Labs: BMP 10/13/17 10/14/17 19:51 08:43 Sodium 144 Potassium 3.4 L 3.8 Chloride 108 H D Carbon Dioxide 28 BUN 9.0 Creatinine 0.5 L Glucose 168 H Calcium 7.7 L Liver Function 10/14/17 Range/Units 08:43 Albumin 2.9 L (3.5-5.0) g/dL Urine 10/13/17 Range/Units 14:07 Urine Color Yellow (YELLOW) Urine Clarity Clear Urine pH 5.5 (5.0-8.0) Ur Specific [place] <=1.005 L (1.015-1.025) Urine Protein Negative (NEGATIVE) Urine Glucose (UA) Negative (NEGATIVE) Assessment and Plan Assessment and Plan: Metastatic Rectosigmoid cancer with liver metastasis and question of lung lesion. S/P Folfox, Folfuri Erbitux and erbitux single agent because of toxicity. Progressed September 2017. Started Stivarga. Developed rash 2 weeks into therapy. Rash is improving but lips are worse since last week. 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 ALEJANDRO and SSA positive. Would culture lip for virus and consider antiviral therapy. Supportive care to maintain nutrition and fluid balance. 2. 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 Hematuria Urine culture from 10/08 grew Group B Strep. On Cefapime 3. Thrombocytopenia. Prior therapy vs DIC. Elevated D Dimer. P Smear pending. Diff has meta and myelocytes worrisome for bone marrow process 4. Liver metastasis. 5. Sjogren's syndrome 6. Skin rash Drug related. improving on face. Still present on legs. 7. Hypoalbuminemia secondary to inadequate oral intake form lip ulceration. Plan Oncology concurs with dismissal to home. Recommend continue acyclovir 40 mg by mouth twice a day for long-term prophylaxis. RTC to see Samira Keane PA-C 10/17, follow-up with Dr. Yee next week. - Time Spent With Patient Total time spent is greater than 50% in coordination of care (as documented) at patient's floor/unit and/or counseling patient: <Maury Yee - Last Filed: 10/14/17 19:26> Exam Vital signs: Temperature 97.9 F 10/14/17 08:00 Pulse Rate 94 10/14/17 08:00 Respiratory Rate 16 10/14/17 08:00 Blood Pressure 146/68 H 10/14/17 08:00 Pulse Oximetry 97 10/14/17 08:00 Oncology Results - Labs CBC & Chem 7: 10/13/17 08:39 10/14/17 08:43 Labs: BMP 10/13/17 10/14/17 19:51 08:43 Sodium 144 Potassium 3.4 L 3.8 Chloride 108 H D Carbon Dioxide 28 BUN 9.0 Creatinine 0.5 L Glucose 168 H Calcium 7.7 L Liver Function 10/14/17 Range/Units 08:43 Albumin 2.9 L (3.5-5.0) g/dL Assessment and Plan Assessment and Plan: Patient examined, chart reviewed. Lips are much better today than yesterday. Herpes viral cultures pending. We'll plan on going home today with acyclovir 400 mg twice a day as long-term prophylaxis. We'll have patient see Samira Kaene on Friday. I will see the patient next week. Treatment of colon cancer is been placed on hold. - Time Spent With Patient Total time spent is greater than 50% in coordination of care (as documented) at patient's floor/unit and/or counseling patient:
== END 2017-10-14 12:50 | disposition home or self-care (01) | DRG 607 ==
LOC: MED → SUATTDRO 18:40
PROVIDERS: ADMIT Internal Medicine; ATTEND Internal Medicine